=== PATIENT | female | born 1930 | race Caucasian/White ===

== ENCOUNTER 2016-12-08 11:17 | Emergency (ER) | payer MEDICARE, BC ==
[2016-12-08 11:44] LABS: Hematocrit 27.5 % (37.0-47.0); Hemoglobin 9.5 gm/dL (12.5-16.0); Mean Cell Volume 92.3 fl (78-100); Mean Corpuscular Hemoglobin 31.9 pg (27-31); Mean Corpuscular Hgb Conc 34.5 g/dl (32-36); Mean Platelet Volume 11.1 fl (6.0-9.5); Neutrophil # 6.4 K/mm3 (1.3-6.0); Platelet Count 242 K/mm3 (150-450); Red Blood Count 2.98 M/mm3 (4.2-5.4); Red Cell Distribution Width 13.1 % (11.5-14.0); White Blood Count 7.8 K/mm3 (4.0-10.5)
[2016-12-08 11:55] LABS: Prothrombin Time (Patient) 11.3 Seconds (9.4-11.4)
[2016-12-08 11:58] LABS: INR 1.09 INR (0.90-1.10); Partial Thrombolplastin Time 24.2 Seconds (24-32)
--- NOTE | 2016-12-08 12:00 | ERNOTE ---
Chest Pain/Cardiac HPI Chief Complaint: Chest Pain Source: patient Exam Limitations: no limitations Immunizations: IMMUNIZATION HX Immunizations Up to Date Yes History of Influenza Vaccine Yes Hx Pneumococcal Vaccination Yes Allergies/Adverse Reactions: Allergies clarithromycin [From Biaxin] Allergy (Mild, Verified 06/11/12 18:20) diclofenac [Diclofenac] Allergy (Mild, Verified 06/11/12 18:20) diclofenac sodium [From Voltaren] Allergy (Mild, Verified 06/11/12 18:21) penicillin G Allergy (Mild, Verified 06/11/12 18:21) rabeprazole sodium [From Aciphex] Allergy (Mild, Verified 06/11/12 18:20) Hives Sulfa (Sulfonamide Antibiotics) [Sulfa(Sulfonamide Antibiotics)] Allergy (Mild, Verified 06/11/12 18:21) rash Home Medications: HOME MEDICATIONS Aspirin [Aspirin EC] 81 mg PO DAILY 06/11/12 [Last Taken 06/11/12 09:00] Atorvastatin Calcium [Lipitor] 40 mg PO DAILY 06/11/12 [Last Taken 06/11/12 09: 00] Hum Insulin NPH/Reg Insulin Hm [Humulin 70-30 Vial] 30 unit SQ BID 06/11/12 [ Last Taken 06/11/12 09:00] Levothyroxine Sodium 50 mcg PO DAILY 06/11/12 [Last Taken 06/11/12 09:00] Metoprolol Tartrate [Lopressor] 25 mg PO DAILY 06/11/12 [Last Taken 06/11/12 09: 00] Omeprazole [Prilosec] 40 mg PO DAILY #30 capsule. 06/14/12 [Last Taken Unknown ] Acetaminophen [Tylenol] 650 mg PO Q4H PRN 12/08/16 [Last Taken Unknown] Insul NPH Hu Rec/Ins Rg Hu Rec [Novolin 70/30] 30 units SC BID 12/08/16 [Last Taken Unknown] Losartan Potassium [Cozaar] 100 mg PO DAILY 12/08/16 [Last Taken Unknown] Triamterene/Hydrochlorothiazid [Dyazide 37.5/25] 2 cap PO DAILY 12/08/16 [Last Taken Unknown] Narrative: Patient woke up this morning feeling weak and light headed, intermittent chest pressure, resolved at this point. She is coming by ambulance Date (Duration): 12/08/16 Time (Timing): 07:30 Timing: intermittent Severity/Quality: pressure Location: central Chest Pain Radiation: no radiation Nitro Today/Relief: no nitro taken today Aspirin Treatment Today: 81 mg x 1 Associated Symptoms: Present: dizziness Review of Systems - Review of Systems Constitutional: Present: weakness. Absent: recent illness, fever EYE: Absent: vision changes ENT: Absent: nose congestion Respiratory: Absent: shortness of breath Cardiology: Present: See HPI Gastrointestinal/Abdominal: Absent: nausea, vomiting, abdominal pain Genitourinary: Present: no symptoms reported Musculoskeletal: Absent: back pain Neurological: Present: weakness. Absent: headache, numbness - Patient's Past Medical History Patient History - Medical: Diabetes Type 2, GERD Patient History - Cardiac/Respiratory: Coronary Heart Disease, Hypertension, Hyperlipidemia Patient History - Surgical Procedures: Other Patient History - Other: None LMP (females 10-50): post menopausal - Social History Living Situations: home Abuse History: No History of abuse Psych History: No pertinent hx Smoking Status: Never smoker Alcohol Use: none Drug Use: none - Immunizations Immunizations Up to Date: Yes Hx Pneumococcal Vaccination: Yes History of Influenza Vaccine: Yes Physical Exam - Physical Exam General Appearance: Present: wd/wn, alert, no apparent distress Head Exam: Present: normal inspection Eye Exam: Normal inspection: bilateral, PERRL: bilateral Respiratory: Present: no respiratory distress, no accessory muscle use, lungs clear, decreased breath sounds Cardiovascular/Chest: Present: regular rate, rhythm, no murmur Gastrointestinal/Abdominal: Present: normal bowel sounds, nontender, nondistended, soft Neurological Exam: Present: alert, oriented, normal mood/affect Skin Exam: Present: warm/dry, pallor ED Progress - Results and Orders Patient's Lab Results:: I have reviewed the patient's lab results. - Vital Signs Patient's Vital Signs:: I have reviewed the patient's vital signs. Vital Signs: Vital Signs 12/08/16 11:20 Temperature 36.0 C L Pulse Rate 39 L Respiratory 17 Rate Blood Pressure 186/47 O2 Sat by Pulse 95 Oximetry - EKG EKG: other - 3rd degree heart block, rate 37bpm EKG read: Interp. by me - X-Ray X-Ray #1 X-Ray: chest - cardiomegalie, no acute changes Interpretation: Reviewed by me - Progress/Reassessment Chief Complaint: Chest Pain Progress Note-Subjective: 12/08/16 11:25 discussed diagnosis with patient and family, need for transfer and options. Patient sees Dr Reyes at the [facility], discussed being transferred there for continuity of care vs to [facility] which is closer. Patient might be liable for part of the ambulance bill if she chooses the more distant facility. Patient and daughters voices understanding and still would like transfer to [facility] 12/08/16 11:44 called to [facility], discussed with transfer center 12/08/16 12:[address] Og from the [facility], accepted patient for transfer labs returned K 5.7, will give calcium gluconate, D50 and insulin 12/08/16 12:40 patient comfortable, discussed plan Departure - Departure Clinical Impression: Third degree atrioventricular block, Hyperkalemia Disposition: [facility] Condition: Fair
[2016-12-08 12:01] LABS: Albumin * 3.6 gm/dl (3.4-5.0); Anion Gap 15.8 mmol/L (6.8-13.8); BUN/Creatinine Ratio 24.9 (9.0-21.6); Bilirubin, Total 0.6 mg/dL (0.0-1.1); Ca. Corrected For Albumin 9.1 mg/dL (8.4-10.2); Calcium * 9.1 mg/dL (7.9-10.9); Carbon Dioxide 22.9 mmol/L (24-32.6); Potassium 5.7 mmol/L (3.4-4.6); Total Protein 6.6 gm/dL (6.2-8.2); Troponin I 0.067 ng/ml (0.00-0.10)
[2016-12-08] MEDS ORDERED: CALCIUM GLUCONATE 4.65 MEQ/10 ML VIAL IV ONE ×2 (12:19→12:26)
[2016-12-08] MEDS ORDERED: INSULIN REGULAR, HUMAN 100 UNITS/ML VIAL IV ONE (12:21)
[2016-12-08] MEDS ORDERED: DEXTROSE 50%-WATER 50 ML SYRG IV ONE (12:22)
[2016-12-08] MEDS ORDERED: DEXTROSE 50%-WATER 50 ML SYRG ONE (12:26)
[2016-12-08] MEDS ORDERED: INSULIN REGULAR, HUMAN 100 UNITS/ML VIAL ONE (12:26)
[2016-12-08] MEDS ORDERED: NORMAL SALINE 1,000 ML IV ONE (12:35)
[2016-12-08 12:43] VITALS: BP 169/48
== END 2016-12-08 12:49 | disposition short-term general hospital (02) ==
LOC: ER 11:17
DX: I44.2 Atrioventricular block, complete (principal); E87.5 Hyperkalemia; I25.10 Atherosclerotic heart disease of native coronary artery without angina pectoris

== ENCOUNTER 2016-12-19 20:25 | Emergency (ER) | payer MEDICARE, BC ==
--- NOTE | 2016-12-19 20:46 | ERNOTE ---
Medical Problem HPI - Narrative Date of Service: 12/19/16 - General Chief Complaint: General Assessment Time Seen by Provider: 12/19/16 20:41 Source: patient Exam Limitations: no limitations - Immun/Allergies/Home Medications Immunizations: IMMUNIZATION HX Immunizations Up to Date Yes History of Influenza Vaccine No Hx Pneumococcal Vaccination Yes Allergies/Adverse Reactions: Allergies clarithromycin [From Biaxin] Allergy (Mild, Verified 06/11/12 18:20) diclofenac [Diclofenac] Allergy (Mild, Verified 06/11/12 18:20) diclofenac sodium [From Voltaren] Allergy (Mild, Verified 06/11/12 18:21) penicillin G Allergy (Mild, Verified 06/11/12 18:21) rabeprazole sodium [From Aciphex] Allergy (Mild, Verified 06/11/12 18:20) Hives Sulfa (Sulfonamide Antibiotics) [Sulfa(Sulfonamide Antibiotics)] Allergy (Mild, Verified 06/11/12 18:21) rash Home Medications: HOME MEDICATIONS Aspirin [Aspirin EC] 81 mg PO DAILY 06/11/12 [Last Taken 06/11/12 09:00] Atorvastatin Calcium [Lipitor] 40 mg PO DAILY 06/11/12 [Last Taken 06/11/12 09: 00] Hum Insulin NPH/Reg Insulin Hm [Humulin 70-30 Vial] 30 unit SQ BID 06/11/12 [ Last Taken 06/11/12 09:00] Levothyroxine Sodium 50 mcg PO DAILY 06/11/12 [Last Taken 06/11/12 09:00] Metoprolol Tartrate [Lopressor] 25 mg PO DAILY 06/11/12 [Last Taken 06/11/12 09: 00] Omeprazole [Prilosec] 40 mg PO DAILY #30 capsule. 06/14/12 [Last Taken Unknown ] Acetaminophen [Tylenol] 650 mg PO Q4H PRN 12/08/16 [Last Taken Unknown] Insul NPH Hu Rec/Ins Rg Hu Rec [Novolin 70/30] 30 units SC BID 12/08/16 [Last Taken Unknown] Losartan Potassium [Cozaar] 100 mg PO DAILY 12/08/16 [Last Taken Unknown] Triamterene/Hydrochlorothiazid [Dyazide 37.5/25] 2 cap PO DAILY 12/08/16 [Last Taken Unknown] Ferrous Gluconate 325 mg PO DAILY #21 tablet 12/19/16 [Last Taken Unknown] - Patient's Past Medical History Patient History - Medical: Diabetes Type 2, GERD, Glaucoma, Other Patient History - Cardiac/Respiratory: Coronary Heart Disease, Hypertension, Hyperlipidemia Patient History - Cancer: No Hx of Cancer Patient History - Surgical Procedures: Hysterectomy, Pacemaker, Total Hip Replacement, Other Patient History - Other: None LMP (females 10-50): Menopausal - Social History Living Situations: residential Abuse History: No History of abuse Psych History: No pertinent hx Have you smoked in the past 12 months: No Do you dip or chew tobacco: No Alcohol Use: none Drug Use: none - Immunizations Immunizations Up to Date: Yes Hx Pneumococcal Vaccination: Yes History of Influenza Vaccine: No Physical Exam - Physical Exam Narrative: Very pleasant and responsive. General Appearance: Present: no apparent distress Head Exam: Present: normal inspection Eye Exam: Normal inspection: bilateral Ears, Nose, Throat: Present: normal ENT inspection Neck: Present: normal inspection Respiratory: Present: no respiratory distress Cardiovascular/Chest: Present: tachycardia Gastrointestinal/Abdominal: Present: nontender, nondistended Back Exam: Present: normal inspection Extremity Exam: Present: normal inspection Neurological Exam: Present: alert, oriented, water conservationist II-XII nml as tested Skin Exam: Present: pallor - mild ED Progress - Results and Orders Patient's Lab Results:: I have reviewed the patient's lab results. - Vital Signs Patient's Vital Signs:: I have reviewed the patient's vital signs. Vital Signs: Vital Signs 12/19/16 20:29 Temperature 36.6 C Pulse Rate 90 Respiratory 18 Rate Blood Pressure 141/52 O2 Sat by Pulse 98 Oximetry - Progress/Reassessment Chief Complaint: General Assessment Progress:: Unchanged Progress Note-Subjective: 12/19/16 21:59 Hemodynamic was stable in the emergency department Departure - Departure Clinical Impression: Anemia Disposition: [facility] Condition: Fair Instructions: Iron Deficiency Anemia, Adult, Iron-Rich Diet Print Language: Libyan Additional Instructions: H and H should be repeated in two days. If the patient becomes symptomatic then transfusion will be needed. Referrals: Dot Salcido MD [Primary Care Provider] - Prescriptions: Ferrous Gluconate 325 mg PO DAILY #21 tablet
[2016-12-19 22:21] VITALS: BP 126/45
== END 2016-12-19 22:14 ==
LOC: ER 20:25
DX: D64.9 Anemia, unspecified (principal)

== ENCOUNTER 2016-12-22 16:42 | Inpatient (IN) | payer MEDICARE, BC ==
--- NOTE | 2016-12-22 17:17 | ERNOTE ---
Medical Problem HPI - General Chief Complaint: General Assessment Time Seen by Provider: 12/22/16 17:06 Source: patient Exam Limitations: no limitations - Immun/Allergies/Home Medications Immunizations: IMMUNIZATION HX Immunizations Up to Date No History of Influenza Vaccine No Hx Pneumococcal Vaccination No Allergies/Adverse Reactions: Allergies clarithromycin [From Biaxin] Allergy (Mild, Verified 06/11/12 18:20) diclofenac [Diclofenac] Allergy (Mild, Verified 06/11/12 18:20) diclofenac sodium [From Voltaren] Allergy (Mild, Verified 06/11/12 18:21) penicillin G Allergy (Mild, Verified 06/11/12 18:21) rabeprazole sodium [From Aciphex] Allergy (Mild, Verified 06/11/12 18:20) Hives Sulfa (Sulfonamide Antibiotics) [Sulfa(Sulfonamide Antibiotics)] Allergy (Mild, Verified 06/11/12 18:21) rash Home Medications: HOME MEDICATIONS Aspirin [Aspirin EC] 81 mg PO DAILY 06/11/12 [Last Taken 06/11/12 09:00] Atorvastatin Calcium [Lipitor] 40 mg PO DAILY 06/11/12 [Last Taken 06/11/12 09: 00] Hum Insulin NPH/Reg Insulin Hm [Humulin 70-30 Vial] 30 unit SQ BID 06/11/12 [ Last Taken 06/11/12 09:00] Levothyroxine Sodium 50 mcg PO DAILY 06/11/12 [Last Taken 06/11/12 09:00] Acetaminophen [Tylenol] 650 mg PO Q4H PRN 12/08/16 [Last Taken Unknown] Insul NPH Hu Rec/Ins Rg Hu Rec [Novolin 70/30] 30 units SC BID 12/08/16 [Last Taken Unknown] Ferrous Gluconate 325 mg PO DAILY #21 tablet 12/19/16 [Last Taken Unknown] Amlodipine Besylate [Norvasc] 2.5 mg PO BID 12/22/16 [Last Taken Unknown] B2/Vits A,C,E/Lut/Zeaxanth/Min [Icaps Tablet] 1 each PO DAILY 12/22/16 [Last Taken Unknown] Carvedilol [Coreg] 25 mg PO BID 12/22/16 [Last Taken Unknown] Clopidogrel Bisulfate [Plavix] 75 mg PO DAILY 12/22/16 [Last Taken Unknown] Nitroglycerin [Nitro-Dur] 0.4 mg TD PRN 12/22/16 [Last Taken Unknown] - History of Present History Narrative: Here for progressive shortness of breath which became worse today. Patient denies any chest pains. Patient gets short of breath with minimal exertion. She has a significant history of coronary artery disease with stents placed last week with permanent pacemaker placed last week at the [facility]. Review of Systems - Review of Systems Constitutional: Present: fatigue EYE: Present: no symptoms reported ENT: Present: no symptoms reported Respiratory: Present: shortness of breath Cardiology: Present: edema Gastrointestinal/Abdominal: Present: no symptoms reported - Patient's Past Medical History Patient History - Medical: Diabetes Type 2, GERD, Glaucoma, Renal Disease, Other Patient History - Cardiac/Respiratory: Coronary Heart Disease, Hypertension, Hyperlipidemia Patient History - Cancer: No Hx of Cancer Patient History - Surgical Procedures: Hysterectomy, Pacemaker, Total Hip Replacement, Other Patient History - Other: None - Social History Living Situations: half-way Abuse History: No History of abuse Psych History: No pertinent hx Smoking Status: Never smoker Alcohol Use: none Drug Use: none - Immunizations Immunizations Up to Date: No Hx Pneumococcal Vaccination: No History of Influenza Vaccine: No Physical Exam - Physical Exam General Appearance: Present: wd/wn, alert, other - patient appears very pale and short of breath but not in any distress Head Exam: Present: normal inspection, no evidence of injury Ears, Nose, Throat: Present: normal ENT inspection, normal pharynx Neck: Present: normal inspection, nontender, other - no JVD noted Respiratory: Present: no respiratory distress, other - patient is breathing rapidly she does have some bibasal crackles no definitive rales or rhonchi noted she is not wheezing at this time Cardiovascular/Chest: Present: regular rate, rhythm - patient has a pacemaker and she is pacemaker dependent. Gastrointestinal/Abdominal: Present: normal bowel sounds, nontender Extremity Exam: Present: other - patient has 2+ pitting edema in both ankles Neurological Exam: Present: alert, oriented, normal mood/affect, no motor/ sensory deficits ED Progress - Results and Orders Patient's Lab Results:: I have reviewed the patient's lab results. - Vital Signs Patient's Vital Signs:: I have reviewed the patient's vital signs. Vital Signs: Vital Signs 12/22/16 16:54 Temperature 36.4 C L Pulse Rate 64 Respiratory 20 Rate Blood Pressure 139/63 O2 Sat by Pulse 98 Oximetry - EKG EKG: other - patient is pacemaker dependent her rate is regular rate and rhythm - X-Ray X-Ray #1 X-Ray: chest - some blunting of the left costovertebral angle is noted this patient appears to be in congestive heart failure pacemaker visible in addition to sternotomy scar and sutures - Progress/Reassessment Chief Complaint: General Assessment Plan - Plan Plan: This patient's BNP is in excess of 3000 she is clinically and by BNP criteria in congestive heart failure. At this time this examiner will give the patient [address] Koenig was counseled in regards to this patient patient will be admitted to the medical floor and telemetry floor Departure - Departure Clinical Impression: Congestive heart failure Qualifiers: Congestive heart failure type: unspecified congestive heart failure type Congestive heart failure chronicity: acute Qualified Code(s): I50.9 - Heart failure, unspecified Disposition: [facility] Condition: Fair
[2016-12-22 17:31] LABS: Mean Cell Volume 96.3 fl (78-100); Mean Corpuscular Hemoglobin 32.8 pg (27-31); Mean Corpuscular Hgb Conc 34.1 g/dl (32-36); Mean Platelet Volume 9.7 fl (6.0-9.5); Neutrophil # 6.6 K/mm3 (1.3-6.0); Neutrophil % 83.2 % (42-75.0); Platelet Count 278 K/mm3 (150-450); Red Blood Count 2.41 M/mm3 (4.2-5.4); Red Cell Distribution Width 14.9 % (11.5-14.0); White Blood Count 7.9 K/mm3 (4.0-10.5)
[2016-12-22 17:51] LABS: Albumin * 3.4 gm/dl (3.4-5.0); Anion Gap 14.8 mmol/L (6.8-13.8); BUN/Creatinine Ratio 16.2 (9.0-21.6); Bilirubin, Total 0.9 mg/dL (0.0-1.1); Calcium * 8.8 mg/dL (7.9-10.9); Carbon Dioxide 24.2 mmol/L (24-32.6); Total Protein 6.2 gm/dL (6.2-8.2)
[2016-12-22 17:59] LABS: Hemoglobin 7.9 gm/dL (12.5-16.0)
[2016-12-22 18:00] LABS: Hematocrit 23.2 % (37.0-47.0)
[2016-12-22] MEDS ORDERED: FUROSEMIDE 10 MG/ML VIAL IV ONE ×2 (18:08→20:42)
[2016-12-22] MEDS ORDERED: FUROSEMIDE 10 MG/ML VIAL ONE (18:12)
--- NOTE | 2016-12-22 20:51 | HP ---
Chief Complaint - Chief Complaint Date of Service: 12/22/16 Time of Service: 20:51 Chief Complaint: shortness of breath History of Present Illness: Sulema is an 86 year old female patient of Dr Salcido with a PMH of CAD, 3rd degree heart block s/p pacemaker, HTN, HLD, and DM T2 who presents to the ER today with c/o dyspnea, fatigue and edema. 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 Patient and family indicate that post heart cath, patient's groin site bled extensively post op and the patient is still significantly bruised. ER eval shows hgb/hct 7.9/23.2. BNP 3104. UA negative. K+ 5.0, creatinine 1.05. chest xray shows small bilat basal effusions. patient was given 20 mg iv lasix in the ER and states she has had improvement in her dyspnea. Patient to be admitted to CHF exac. - Patient's Past Medical History Patient History - Medical: Diabetes Type 2, GERD, Glaucoma, Renal Disease, Other Patient History - Cardiac/Respiratory: Coronary Heart Disease, Hypertension, Hyperlipidemia Patient History - Cancer: No Hx of Cancer Patient History - Surgical Procedures: Hysterectomy, Pacemaker, Total Hip Replacement, Other Patient History - Other: None LMP (females 10-50): Menopausal - Family History Father Family History - Medical: Family History - Cardiac/Respiratory: No pertinent hx Family History - Cancer: Other - Social History Living Situations: long term Abuse History: No History of abuse Psych History: No pertinent hx Smoking Status: Never smoker Have you smoked in the past 12 months: No Do you dip or chew tobacco: No Alcohol Use: none Drug Use: none - Immunizations Immunizations Up to Date: No Hx Pneumococcal Vaccination: No History of Influenza Vaccine: No Review Of Systems (GEN) - Review of Systems Generalized/Overall Review: Present: Fatigue. Absent: Fever EENTM: Present: No Symptoms Reported Respiratory: Present: Shortness of Breath. Absent: Cough, Wheezing Cardiac: Present: Edema. Absent: Chest Pain Abdominal: Present: Nausea. Absent: Vomiting, Hematemesis Genitourinary: Present: No Symptoms Reported Musculoskeletal: Present: No Symptoms Reported Neurological: Present: No Symptoms Reported Skin: Present: No Symptoms Reported Endocrine: Present: No Symptoms Reported Misc: All systems neg except as marked Immunizations: IMMUNIZATION HX Immunizations Up to Date No History of Influenza Vaccine No Hx Pneumococcal Vaccination No Allergies/Adverse Reactions: Allergies Allergy/AdvReac Type Severity Reaction Status Date / Time clarithromycin [From Biaxin] Allergy Mild Verified 06/11/12 18:20 diclofenac [Diclofenac] Allergy Mild Verified 06/11/12 18:20 diclofenac sodium Allergy Mild Verified 06/11/12 18:21 [From Voltaren] penicillin G Allergy Mild Verified 06/11/12 18:21 rabeprazole sodium Allergy Mild Hives Verified 06/11/12 18:20 [From Aciphex] Sulfa (Sulfonamide Allergy Mild rash Verified 06/11/12 18:21 Antibiotics) [Sulfa(Sulfonamide Antibiotics)] Home Medications: HOME MEDICATIONS Aspirin [Aspirin EC] 81 mg PO DAILY 06/11/12 [Last Taken 06/11/12 09:00] Atorvastatin Calcium [Lipitor] 40 mg PO DAILY 06/11/12 [Last Taken 06/11/12 09: 00] Levothyroxine Sodium 50 mcg PO DAILY 06/11/12 [Last Taken 06/11/12 09:00] Acetaminophen [Tylenol] 325 mg PO Q4H PRN 12/08/16 [Last Taken Unknown] Ferrous Gluconate 325 mg PO DAILY #21 tablet 12/19/16 [Last Taken Unknown] Amlodipine Besylate [Norvasc] 2.5 mg PO BID 12/22/16 [Last Taken Unknown] B2/Vits A,C,E/Lut/Zeaxanth/Min [Icaps Tablet] 1 each PO DAILY 12/22/16 [Last Taken Unknown] Brimonidine Tartrate [Brimonidine 0.2% Ophthalmic Solution] 1 drop OP BID [Last Taken Unknown] Calcium Carbonate [Calcium Antacid] 1 tab PO TID PRN 12/22/16 [Last Taken Unknown] Carvedilol [Coreg] 25 mg PO BID 12/22/16 [Last Taken Unknown] Clopidogrel Bisulfate [Plavix] 75 mg PO DAILY 12/22/16 [Last Taken Unknown] Diphenhydramine HCl 25 mg PO Q4H PRN 12/22/16 [Last Taken Unknown] Insulin Aspart Prot/Insuln Asp [Novolog Mix 70/30] 28 units SQ BID 12/22/16 [ Last Taken Unknown] Latanoprost [Xalatan] 1 drop OP HS 12/22/16 [Last Taken Unknown] Nitroglycerin [Nitro-Dur] 0.4 mg TD PRN 12/22/16 [Last Taken Unknown] Pantoprazole Sodium [Protonix] 40 mg PO DAILY 12/22/16 [Last Taken Unknown] Pediatric Multivitamin No.49 [Flintstones Gummies] 2 each PO DAILY 12/22/16 [ Last Taken Unknown] Polyethylene Glycol 3350 [Miralax] 17 gm PO DAILY PRN 12/22/16 [Last Taken Unknown] Wheat Dextrin [Benefiber] 2 tbs PO DAILY 12/22/16 [Last Taken Unknown] Exam - Exam Vital Signs: Vital Signs - Last Taken Temp 36.5 C 12/22/16 18:48 Pulse 62 12/22/16 18:48 Resp 26 H 12/22/16 18:48 BP 153/67 12/22/16 18:48 Pulse Ox 100 12/22/16 18:48 Constitutional: Present: Alert, Cooperative, No distress ENT Exam: Present: hearing grossly normal Eye Exam: bilateral eye: normal inspection Neck: Present: supple Breasts: Present: Exam deferred Respiratory: Present: chest non-tender, normal breath sounds, rhonchi - bases, bilat Cardiovascular/Chest: Present: normal peripheral pulses, regular rate, rhythm Peripheral Pulses: carotid (R): 2+, carotid (L): 2+, dorsalis-pedis (R): 2+, dorsalis-pedis (L): 2+ Abdomen: Present: soft, nondistended, tender - mild, diffuse tenderness to palpation /Rectal: Present: Exam deferred Extremity: Present: non-tender, lower extremity edema - 2+ lpwer extremity edema bilat Skin Exam: Present: warm/dry, no cyanosis, pallor Diagnostic Studies: Laboratory Results WBC 7.9 K/mm3 (4.0-10.5) 12/22/16 17:25 RBC 2.41 M/mm3 (4.2-5.4) L 12/22/16 17:25 Hgb 7.9 gm/dL (12.5-16.0) L* 12/22/16 17:25 Hct 23.2 % (37.0-47.0) L* 12/22/16 17:25 MCV 96.3 fl (78-100) 12/22/16 17:25 MCH 32.8 pg (27-31) H 12/22/16 17:25 MCHC 34.1 g/dl (32-36) 12/22/16 17:25 RDW 14.9 % (11.5-14.0) H 12/22/16 17:25 Plt Count 278 K/mm3 (150-450) 12/22/16 17:25 MPV 9.7 fl (6.0-9.5) H 12/22/16 17:25 Immature Gran % (Auto) 0.80 % (0.001-0.429) H 12/22/16 17: Immature Gran # (Auto) 0.06 K/mm3 (0.000-0.0310) H 12/22/16 17: Neutrophils % 83.2 % (42-75.0) H 12/22/16 17:25 Lymphocytes % 5.8 % (20-51) L 12/22/16 17: Monocytes % 7.6 % (0.0-9) 12/22/16 17: Eosinophils % 2.3 % (0.0-3.0) 12/22/16 17: Basophils % 0.3 % (0.0-1.0) 12/22/16 17: Nucleated RBC % 0.0 k/mm3 (0-1) 12/22/16 17: Neutrophils # 6.6 K/mm3 (1.3-6.0) H 12/22/16 17:25 Lymphocytes # 0.5 k/mm3 (1.5-3.5) L 12/22/16 17:25 Monocytes # 0.6 k/mm3 (0.0-1.0) 12/22/16 17: Eosinophils # 0.2 k/mm3 (0.0-0.7) 12/22/16 17: Absolute Basophils 0.0 k/mm3 (0.0-0.1) 12/22/16 17:25 Sodium 126 mmol/L (132-142) L 12/22/16 17:25 Plasma Sodium 126 mmol/L (130-142) L 12/22/16 17:25 Potassium 5.0 mmol/L (3.4-4.6) H 12/22/16 17:25 Chloride 92 mmol/L (97-106) L 12/22/16 17:25 Carbon Dioxide 24.2 mmol/L (24-32.6) 12/22/16 17:25 Anion Gap 14.8 mmol/L (6.8-13.8) H 12/22/16 17:25 BUN 17 mg/dL (3-23) 12/22/16 17:25 Creatinine 1.05 mg/dL (0.4-1.4) 12/22/16 17:25 Est GFR (Non-Af Amer) 53 mL/min (60-130) L 12/22/16 17:25 BUN/Creatinine Ratio 16.2 (9.0-21.6) 12/22/16 17:25 Random Glucose 112 mg/dL (70-110) H 12/22/16 17:25 Calcium 8.8 mg/dL (7.9-10.9) 12/22/16 17:25 Calcium Adj for Albumin 9.0 mg/dL (8.4-10.2) 12/22/16 17:25 Total Bilirubin 0.9 mg/dL (0.0-1.1) 12/22/16 17:25 AST 28 U/L (0-48) 12/22/16 17:25 ALT 30 U/L (19-67) 12/22/16 17:25 Alkaline Phosphatase 65 U/L (50-170) 12/22/16 17:25 B-Natriuretic Peptide 3104 pg/mL (5-550) H 12/22/16 17:25 Total Protein 6.2 gm/dL (6.2-8.2) 12/22/16 17:25 Albumin 3.4 gm/dl (3.4-5.0) 12/22/16 17:25 Procalcitonin Less than 0.05 ng/mL (0.05-0.50) L 12/22/16 17:25 Assessment/Plan - Narrative Narrative: CHF - given lasix 20 mg iv in ER with good results - give an additional 20 mg iv x1 now. - strict I&Os - daily weights - CHF teaching - wean off O2 as able anemia - likely secondary to acute blood loss from bleed post cath - hgb stable for 10 days and actually has begun to climb. - not symptomatic at this time. hyponatremia - monitor labs - may be secondary to CHF l abdominal pain with nausea - also with increased "belching" - check ab xray - shows significant moderate constipation - give dulcolax 10 mg po x1, then fleets if dulcolax not effective. CAD - no chest pain - troponin negative - ekg not acute - monitor HTN - vital signs q 4 hours hyperkalemia - consider d/c [place]-inhibitor. Code status: full code VTE: early ambulation GI proph: protonix po. - Assessment/Plan (1) Abdominal pain Problem: Acute Qualifiers: Abdominal location: generalized Qualified Code(s): R10.84 - Generalized abdominal pain (2) HTN (hypertension) Problem: Chronic Qualifiers: Hypertension type: essential hypertension Qualified Code(s): I10 - Essential (primary) hypertension (3) HLD (hyperlipidemia) Problem: Chronic Qualifiers: Hyperlipidemia type: unspecified Qualified Code(s): E78.5 - Hyperlipidemia , unspecified (4) Diabetes Problem: Chronic Qualifiers: Diabetes mellitus type: type 2 Diabetes mellitus complication status: with unspecified complications Diabetes mellitus chcf insulin use: without chcf use Qualified Code(s): E11.8 - Type 2 diabetes mellitus with unspecified complications (5) Congestive heart failure Problem: Acute Qualifiers: Congestive heart failure type: unspecified congestive heart failure type Congestive heart failure chronicity: acute Qualified Code(s): I50.9 - Heart failure, unspecified (6) Anemia Problem: Acute Qualifiers: Anemia type: unspecified type Qualified Code(s): D64.9 - Anemia, unspecified (7) Hyponatremia Problem: Acute (8) Hyperkalemia Problem: Acute
[2016-12-22] MEDS ORDERED: POLYETHYLENE GLYCOL 3350 119 GM BTL PO PRN (20:54)
[2016-12-22] MEDS ORDERED: diphenhydrAMINE HCL 25 MG CAPSULE PO PRN (20:54)
[2016-12-22] MEDS ORDERED: ACETAMINOPHEN 325 MG TABLET PO PRN (20:54)
[2016-12-22 21:13] LABS: Amylase * 52 U/L (25-115); Lipase 75 U/L (73-393)
[2016-12-22 21:16] LABS: Iron 65 mcg/dL (35-120); Transferrin Sat. (% Sat.) 23 % (15-55)
[2016-12-22] MEDS: INSULIN LISPRO 100 UNITS/ML VIAL SC SCH (22:19)
[2016-12-22 22:20] LABS: Urine Bilirubin Negative (NEGATIVE); Urine Blood Negative /ul (NEGATIVE); Urine Ketone Negative (NEGATIVE); Urine Nitrite Negative (NEGATIVE); Urine Protein Negative (NEGATIVE); Urine Urobilinogen Normal (NORMAL)
[2016-12-22] MEDS: LATANOPROST 25 DROP BTL OP SCH (22:20)
[2016-12-22] MEDS: CARVEDILOL 25 MG TABLET PO SCH (22:20)
[2016-12-22] MEDS: BRIMONIDINE TARTRATE 50 DROP BTL OP SCH (22:20)
[2016-12-22] MEDS: amLODIPine BESYLATE 5 MG TABLET PO SCH (22:21)
[2016-12-22 22:32] LABS: Urine Appearance Clear; Urine Color Yellow
[2016-12-22 22:34] LABS: Urine Bacteria TRACE; Urine RBC None Seen /hpf (0-5); Urine WBC None Seen /hpf (0-5)
[2016-12-23] MEDS ORDERED: BISACODYL 5 MG TABLET.DR PO ONE (05:25)
[2016-12-23] MEDS ORDERED: BISACODYL 10 MG SUPP.RECT RC ONE (06:30)
[2016-12-23] MEDS ORDERED: MINERAL OIL 1 ENEMA BTL RC PRN (06:38)
[2016-12-23] MEDS ORDERED: AZITHROMYCIN 250 MG TABLET PO ONE (06:44)
--- NOTE | 2016-12-23 06:44 | PN ---
Progess Note - Interim Narrative: 12/23/16 06:40 pt. feeling better this am, but does have a dry throat and dry cough. not as SIFUENTES or SOB. Ankles feel less swollen. No CP/N/V. Exam shows significant EEW and E>>I tita. no rales. Trace LE edema. Pacemaker site healing well but ecchymotic right shouldner. 12/23/16 06:41 CHF: diastolic in nature at least given wheezing and LE edema, but also probably systolic too. Will continue lasix outpt. along with KCL and let PCP decide whether it needs to be continued or not. Hyponatremia: due to some lung disease. not a smoker so must be other exposures. Wheezing: acute bronchitis? or probable asthma exacerbation. Will do nebs today , consider steroid. Start zpak. Hopefully can send home later today.
[2016-12-23] MEDS: INSULIN LISPRO 100 UNITS/ML VIAL SC SCH ×4 (07:08→20:19)
[2016-12-23 07:22] LABS: Mean Cell Volume 94.4 fl (78-100); Mean Corpuscular Hemoglobin 32.9 pg (27-31); Mean Corpuscular Hgb Conc 34.9 g/dl (32-36); Mean Platelet Volume 9.4 fl (6.0-9.5); Neutrophil # 5.3 K/mm3 (1.3-6.0); Neutrophil % 77.4 % (42-75.0); Platelet Count 248 K/mm3 (150-450); Red Blood Count 2.31 M/mm3 (4.2-5.4); Red Cell Distribution Width 14.7 % (11.5-14.0); White Blood Count 6.9 K/mm3 (4.0-10.5)
[2016-12-23 07:26] LABS: Anion Gap 10.2 mmol/L (6.8-13.8); BUN/Creatinine Ratio 16.2 (9.0-21.6); Calcium * 8.6 mg/dL (7.9-10.9); Carbon Dioxide 29.8 mmol/L (24-32.6); Estimated Creat Clear 28.2
[2016-12-23] MEDS: ALBUTEROL SULFATE 2.5 MG/3 ML VIAL.NEB IH SCH ×5 (07:55→22:18)
[2016-12-23 07:58] LABS: Hematocrit 21.8 % (37.0-47.0); Hemoglobin 7.6 gm/dL (12.5-16.0)
[2016-12-23] MEDS: ASPIRIN 81 MG TABLET.DR PO SCH (08:37)
[2016-12-23] MEDS: BRIMONIDINE TARTRATE 50 DROP BTL OP SCH ×2 (08:37→20:18)
[2016-12-23] MEDS: FERROUS SULFATE 325 MG TABLET PO SCH (08:37)
[2016-12-23] MEDS: CARVEDILOL 25 MG TABLET PO SCH ×2 (08:37→20:18)
[2016-12-23] MEDS: CALCIUM POLYCARBOPHIL 625 MG TABLET PO SCH (08:38)
[2016-12-23] MEDS: MULTIVITAMINS 1 TAB TAB.CHEW PO SCH (08:38)
[2016-12-23] MEDS: PANTOPRAZOLE SODIUM 40 MG TABLET.EC PO SCH (08:39)
[2016-12-23] MEDS: CLOPIDOGREL BISULFATE 75 MG TABLET PO SCH (08:39)
[2016-12-23] MEDS: BETA-CAROTENE(A) W-C , E/MIN 1 TAB TABLET PO SCH (08:39)
[2016-12-23] MEDS: amLODIPine BESYLATE 5 MG TABLET PO SCH ×2 (08:39→20:19)
[2016-12-23] MEDS: LEVOTHYROXINE SODIUM 50 MCG TABLET PO SCH (08:39)
--- NOTE | 2016-12-23 08:44 | PN ---
Subjective - Date and Time Seen Date: 12/23/16 Time: 08:32 Subjective Narrative: Pt. without complaints except breathing issues and sore throat, feels better overall since yesterday, but is complaining of being very light headed when standing up. Objective - Review of Systems Generalized/Overall Review: Reports: Weakness EENTM: Reports: No Symptoms Reported Respiratory: Reports: Cough, Wheezing. Denies: Shortness of Breath, Orthopnea Cardiac: Reports: Other - light headed - orthostatic sx.. Denies: Chest Pain, Edema, Palpitations Abdominal: Denies: Nausea, Vomiting, Hematemesis Genitourinary Symptoms: Reports: No Symptoms Reported Musculoskeletal Complaints: Reports: No Symptoms Reported Neurological: Reports: No Symptoms Reported Skin: Reports: No Symptoms Reported Endocrine: Reports: No Symptoms Reported - Vitals Vitals: Last Vital Signs Temp 36.6 C 12/23/16 07:35 Pulse 60 12/23/16 08:05 Resp 16 12/23/16 08:05 BP 141/46 12/23/16 07:35 Pulse Ox 96 12/23/16 07:55 - Abnormal Lab Findings Abnormal Lab Findings: Abnormal Lab Results 12/23/16 12/23/16 Range/Units 07:10 07:10 RBC 2.31 L (4.2-5.4) M/mm3 Hgb 7.6 L* (12.5-16.0) gm/dL Hct 21.8 L* (37.0-47.0) % MCH 32.9 H (27-31) pg RDW 14.7 H (11.5-14.0) % Neutrophils % 77.4 H (42-75.0) % Lymphocytes % 9.7 L (20-51) % Monocytes % 9.2 H (0.0-9) % Lymphocytes # 0.7 L (1.5-3.5) k/mm3 Sodium 127 L (132-142) mmol/L Plasma Sodium 127 L (130-142) mmol/L Chloride 91 L (97-106) mmol/L Est GFR (Non-Af Amer) 49 L (60-130) mL/min - EKG/Xray Findings EKG: other - paced rhythm - Exam Constitutional: Present: Alert, Oriented x3, Cooperative, No distress ENT Exam: Present: hearing grossly normal Neck: Present: supple Respiratory: Present: no accessory muscle use, respiratory distress - mild, rhonchi, wheezing, expiration (prolonged) Cardiovascular/Chest: Present: regular rate, rhythm, systolic murmur, edema - 1+ LE Abdomen: Present: Normal bowel sounds, soft, nontender, nondistended, no rebound tenderness, no hepatospenomegaly /Rectal: Present: Exam deferred Extremity: Present: no calf tenderness, lower extremity edema Skin Exam: Present: pallor, other - incision over pacemaker placement right shoulder is healing well with some bruising, but no signs of infection. Neurologic: Present: normal mood/affect, oriented x 3 Appearance: Present: appropriate appearance, appropriate insight, neat Eye contact: Present: cooperative, good eye contact, normal speech Thoughts: Present: normal thought pattern, no apparent hallucination Assessment/Plan - Problems/Diagnosis (1) Pacemaker Problem: Acute Narrative: appears to be working well, but did just go through major procedures for this and heart stenting. (2) Bronchitis after surgery Problem: Acute Narrative: having lung issues right now, believe it is high risk to send her home at this time without being sure she will respond to neb tx and abx. (3) Congestive heart failure Problem: Acute Qualifiers: Congestive heart failure type: unspecified congestive heart failure type Congestive heart failure chronicity: acute Qualified Code(s): I50.9 - Heart failure, unspecified Narrative: appears to be improved but since it is mainly diastolic and she is having lung issues right now, believe it is high risk to send her home at this time without being sure she will respond to neb tx and abx. (4) Hyponatremia Problem: Acute (5) Diabetes Problem: Chronic Qualifiers: Diabetes mellitus type: type 2 Diabetes mellitus complication status: with unspecified complications Diabetes mellitus long term acute care registered nurse insulin use: without long term acute care registered nurse use Qualified Code(s): E11.8 - Type 2 diabetes mellitus with unspecified complications (6) HLD (hyperlipidemia) Problem: Chronic Qualifiers: Hyperlipidemia type: unspecified Qualified Code(s): E78.5 - Hyperlipidemia , unspecified (7) HTN (hypertension) Problem: Chronic Qualifiers: Hypertension type: essential hypertension Qualified Code(s): I10 - Essential (primary) hypertension Narrative: stable at the moment. BP's running high. follow for now. could be compensation from anemia. (8) Anemia Problem: Acute Qualifiers: Anemia type: unspecified type Qualified Code(s): D64.9 - Anemia, unspecified Narrative: most likely due to acute blood loss from recent procedures, which puts her at a very high risk for ACS/ so will make her inpatient to see how Hb does, to be sure remains stable and her orthostatic sx improve. (9) Hyperkalemia Problem: Resolved (10) Discharge planning issues Problem: Acute Narrative: Given her CAD, age, anemia, hyponatremia that did has not improved and with orthostatic sx and lung findings I feel it would be inappropriate to discharge at this time due to high risk of or adverse outcome should she be discharged at this time. I believe due to her multiple issues she meets inpatient criteria and needs to be in the hospital a minimum of 2 midnights to be sure her condition improves and not worsens. She may need transfusion if she continues with sx and her lung findings could be signs of developing pneumonia given her recent hospitalization.
[2016-12-23] MEDS ORDERED: CALCIUM CARBONATE 500 MG TAB.CHEW PO PRN (09:00)
[2016-12-23] MEDS ORDERED: ATORVASTATIN CALCIUM 40 MG TABLET PO SCH (09:00)
[2016-12-23] MEDS ORDERED: METHYLPREDNISOLONE SOD SUCC/PF 40 MG/ML VIAL IV ONE (09:41)
[2016-12-23] MEDS ORDERED: METHYLPREDNISOLONE SOD SUCC 80 MG in WATER FOR INJ.,BACTERIOSTATIC 0 ML IV ONE (10:00)
[2016-12-23] MEDS ORDERED: INSULIN REGULAR, HUMAN 100 UNITS/ML VIAL SC SCH (12:00)
[2016-12-23] MEDS: LATANOPROST 25 DROP BTL OP SCH (20:18)
[2016-12-23] MEDS: ROSUVASTATIN CALCIUM 20 MG TABLET PO SCH (20:18)
[2016-12-24] MEDS: ALBUTEROL SULFATE 2.5 MG/3 ML VIAL.NEB IH SCH ×6 (02:06→22:46)
[2016-12-24] MEDS: INSULIN LISPRO 100 UNITS/ML VIAL SC SCH ×4 (07:28→20:13)
[2016-12-24] MEDS: MULTIVITAMINS 1 TAB TAB.CHEW PO SCH (09:01)
[2016-12-24] MEDS: amLODIPine BESYLATE 5 MG TABLET PO SCH ×2 (09:01→20:13)
[2016-12-24] MEDS: CALCIUM POLYCARBOPHIL 625 MG TABLET PO SCH (09:01)
[2016-12-24] MEDS: ASPIRIN 81 MG TABLET.DR PO SCH (09:01)
[2016-12-24] MEDS: CLOPIDOGREL BISULFATE 75 MG TABLET PO SCH (09:01)
[2016-12-24] MEDS: BETA-CAROTENE(A) W-C , E/MIN 1 TAB TABLET PO SCH (09:01)
[2016-12-24] MEDS: PANTOPRAZOLE SODIUM 40 MG TABLET.EC PO SCH (09:02)
[2016-12-24] MEDS: LEVOTHYROXINE SODIUM 50 MCG TABLET PO SCH (09:02)
[2016-12-24] MEDS: CARVEDILOL 25 MG TABLET PO SCH ×2 (09:02→20:14)
[2016-12-24] MEDS: BRIMONIDINE TARTRATE 50 DROP BTL OP SCH ×2 (09:02→20:14)
[2016-12-24] MEDS: FERROUS SULFATE 325 MG TABLET PO SCH (09:02)
[2016-12-24 09:48] LABS: Mean Cell Volume 93.4 fl (78-100); Mean Corpuscular Hemoglobin 32.8 pg (27-31); Mean Platelet Volume 10.1 fl (6.0-9.5); Platelet Count 271 K/mm3 (150-450); Red Blood Count 2.29 M/mm3 (4.2-5.4); Red Cell Distribution Width 14.8 % (11.5-14.0); White Blood Count 12.1 K/mm3 (4.0-10.5)
[2016-12-24 09:51] LABS: Hematocrit 21.4 % (37.0-47.0); Hemoglobin 7.5 gm/dL (12.5-16.0)
[2016-12-24 10:06] LABS: Anion Gap 15.9 mmol/L (6.8-13.8); BUN/Creatinine Ratio 17.9 (9.0-21.6); Calcium * 8.5 mg/dL (7.9-10.9); Carbon Dioxide 24.6 mmol/L (24-32.6); Estimated Creat Clear 20.8; Potassium 4.5 mmol/L (3.4-4.6)
[2016-12-24 14:30] LABS: Urine Bilirubin Negative (NEGATIVE); Urine Blood Negative /ul (NEGATIVE); Urine Ketone Negative (NEGATIVE); Urine Nitrite Negative (NEGATIVE); Urine Protein Negative (NEGATIVE); Urine Urobilinogen Normal (NORMAL); Urine pH 5.5 pH (5.0-7.0)
[2016-12-24 14:40] LABS: Urine Appearance Clear; Urine Color Yellow
[2016-12-24 14:41] LABS: Urine RBC None Seen /hpf (0-5); Urine WBC 0-5 /hpf (0-5)
[2016-12-24 14:42] LABS: Urine Bacteria 1+
--- NOTE | 2016-12-24 16:27 | PN ---
Subjective - Date and Time Seen Date: 12/24/16 Time: 07:50 Subjective Narrative: Patient seen and examined at bedside. No acute issues overnight. Objective - Review of Systems Generalized/Overall Review: Reports: Weakness, Fatigue EENTM: Reports: No Symptoms Reported Respiratory: Reports: Shortness of Breath Cardiac: Reports: Edema Abdominal: Reports: No Symptoms Reported Genitourinary Symptoms: Reports: No Symptoms Reported Musculoskeletal Complaints: Reports: No Symptoms Reported Neurological: Reports: No Symptoms Reported Skin: Reports: No Symptoms Reported Endocrine: Reports: No Symptoms Reported Misc: All systems neg except as marked - Vitals Vitals: Last Vital Signs Temp 36.4 C L 12/24/16 14:16 Pulse 60 12/24/16 14:52 Resp 16 12/24/16 14:52 BP 156/57 12/24/16 14:16 Pulse Ox 97 12/24/16 14:42 - Abnormal Lab Findings Abnormal Lab Findings: Abnormal Lab Results 12/24/16 12/24/16 12/24/16 Range/Units 09:30 09:30 14:20 WBC 12.1 H D (4.0-10.5) K/mm3 RBC 2.29 L (4.2-5.4) M/mm3 Hgb 7.5 L* (12.5-16.0) gm/dL Hct 21.4 L* (37.0-47.0) % MCH 32.8 H (27-31) pg RDW 14.8 H (11.5-14.0) % MPV 10.1 H (6.0-9.5) fl Sodium 122 L (132-142) mmol/L Plasma Sodium 125 L (130-142) mmol/L Chloride 86 L (97-106) mmol/L Anion Gap 15.9 H (6.8-13.8) mmol/L BUN 27 H (3-23) mg/dL Creatinine 1.51 H D (0.4-1.4) mg/dL Est GFR (Non-Af Amer) 35 L D (60-130) mL/min Random Glucose 287 H D (70-110) mg/dL B-Natriuretic Peptide 4870 H (5-550) pg/mL Ur Leukocyte Esterase (NEGATIVE) /ul Urine Bacteria (NONE) Ur Random Sodium 4 L (40-220) mmol/L 12/24/16 Range/Units 14:20 WBC (4.0-10.5) K/mm3 RBC (4.2-5.4) M/mm3 Hgb (12.5-16.0) gm/dL Hct (37.0-47.0) % MCH (27-31) pg RDW (11.5-14.0) % MPV (6.0-9.5) fl Sodium (132-142) mmol/L Plasma Sodium (130-142) mmol/L Chloride (97-106) mmol/L Anion Gap (6.8-13.8) mmol/L BUN (3-23) mg/dL Creatinine (0.4-1.4) mg/dL Est GFR (Non-Af Amer) (60-130) mL/min Random Glucose (70-110) mg/dL B-Natriuretic Peptide (5-550) pg/mL Ur Leukocyte Esterase 25 H (NEGATIVE) /ul Urine Bacteria 1+ H (NONE) Ur Random Sodium (40-220) mmol/L - Exam Constitutional: Present: Alert, Oriented x3, Cooperative, Well developed, No distress, Elderly, Obese ENT Exam: Present: moist mucous membranes Respiratory: Present: lungs clear, normal breath sounds, no respiratory distress , no accessory muscle use Cardiovascular/Chest: Present: regular rate, rhythm, systolic murmur, edema - 2 + pitting edema in bilateral lower extremities Abdomen: Present: soft, nontender, nondistended Extremity: Present: non-tender, normal inspection, lower extremity edema - 2+ pitting edema in bilateral lower extremities Skin Exam: Present: warm/dry, pallor Neurologic: Present: alert, normal mood/affect, oriented x 3 Appearance: Present: appropriate appearance, appropriate insight, neat Eye contact: Present: cooperative, good eye contact, normal speech Thoughts: Present: normal thought pattern, no apparent hallucination Assessment/Plan Plan Narrative: Hyponatremia workup ordered. Start fluid restriction with a maximum of 2000cc per day. Continue to monitor hemoglobin and if it continues to decline, consider blood transfusion. Continue to monitor potassium with at least daily BMP and replace potassium as necessary. - Problems/Diagnosis (1) Congestive heart failure Problem: Acute Qualifiers: Congestive heart failure type: unspecified congestive heart failure type Congestive heart failure chronicity: acute Qualified Code(s): I50.9 - Heart failure, unspecified (2) Hypokalemia Problem: Acute (3) Hyponatremia Problem: Acute (4) Normocytic anemia Problem: Acute (5) Benign essential hypertension Problem: Chronic (6) CAD (coronary artery disease) Problem: Chronic (7) GERD (gastroesophageal reflux disease) Problem: Chronic (8) Glaucoma Problem: Chronic (9) HLD (hyperlipidemia) Problem: Chronic Qualifiers: Hyperlipidemia type: unspecified Qualified Code(s): E78.5 - Hyperlipidemia , unspecified (10) Hypothyroidism Problem: Chronic (11) Type 2 diabetes mellitus Problem: Chronic (12) Third degree atrioventricular block Problem: Resolved
[2016-12-24] MEDS: HEPARIN SODIUM,PORCINE 5,000 UNITS/ML VIAL SC SCH (17:12)
[2016-12-24 19:31] LABS: Anion Gap 12.1 mmol/L (6.8-13.8); BUN/Creatinine Ratio 22.6 (9.0-21.6); Calcium * 8.5 mg/dL (7.9-10.9); Carbon Dioxide 27.7 mmol/L (24-32.6); Estimated Creat Clear 22.9; Potassium 4.8 mmol/L (3.4-4.6)
[2016-12-24] MEDS: ROSUVASTATIN CALCIUM 20 MG TABLET PO SCH (20:14)
[2016-12-24] MEDS: LATANOPROST 25 DROP BTL OP SCH (20:14)
[2016-12-25] MEDS: ALBUTEROL SULFATE 2.5 MG/3 ML VIAL.NEB IH SCH ×6 (03:35→22:56)
[2016-12-25] MEDS: HEPARIN SODIUM,PORCINE 5,000 UNITS/ML VIAL SC SCH ×2 (03:37→17:25)
[2016-12-25 06:47] LABS: Mean Cell Volume 94.1 fl (78-100); Mean Corpuscular Hemoglobin 32.9 pg (27-31); Mean Corpuscular Hgb Conc 34.9 g/dl (32-36); Mean Platelet Volume 10.5 fl (6.0-9.5); Platelet Count 251 K/mm3 (150-450); Red Blood Count 2.22 M/mm3 (4.2-5.4); Red Cell Distribution Width 14.8 % (11.5-14.0); White Blood Count 9.7 K/mm3 (4.0-10.5)
[2016-12-25 07:00] LABS: Anion Gap 11.1 mmol/L (6.8-13.8); BUN/Creatinine Ratio 27.8 (9.0-21.6); Calcium * 8.8 mg/dL (7.9-10.9); Estimated Creat Clear 27.3; Potassium 4.1 mmol/L (3.4-4.6)
[2016-12-25 07:03] LABS: Hematocrit 20.9 % (37.0-47.0); Hemoglobin 7.3 gm/dL (12.5-16.0)
[2016-12-25] MEDS: INSULIN LISPRO 100 UNITS/ML VIAL SC SCH ×4 (07:46→20:41)
[2016-12-25] MEDS: CARVEDILOL 25 MG TABLET PO SCH ×2 (08:42→20:41)
[2016-12-25] MEDS: ASPIRIN 81 MG TABLET.DR PO SCH (08:42)
[2016-12-25] MEDS: CALCIUM POLYCARBOPHIL 625 MG TABLET PO SCH (08:43)
[2016-12-25] MEDS: FERROUS SULFATE 325 MG TABLET PO SCH (08:43)
[2016-12-25] MEDS: MULTIVITAMINS 1 TAB TAB.CHEW PO SCH (08:44)
[2016-12-25] MEDS: CLOPIDOGREL BISULFATE 75 MG TABLET PO SCH (08:45)
[2016-12-25] MEDS: BETA-CAROTENE(A) W-C , E/MIN 1 TAB TABLET PO SCH (08:45)
[2016-12-25] MEDS: PANTOPRAZOLE SODIUM 40 MG TABLET.EC PO SCH (08:46)
[2016-12-25] MEDS: amLODIPine BESYLATE 5 MG TABLET PO SCH ×2 (08:46→20:42)
[2016-12-25] MEDS: LEVOTHYROXINE SODIUM 50 MCG TABLET PO SCH (08:47)
[2016-12-25] MEDS: BRIMONIDINE TARTRATE 50 DROP BTL OP SCH ×2 (08:48→20:37)
[2016-12-25] MEDS ORDERED: FUROSEMIDE 10 MG/ML VIAL IV PRN ×2 (09:00→09:03)
--- NOTE | 2016-12-25 17:10 | PN ---
Subjective - Date and Time Seen Date: 12/25/16 Time: 07:50 Subjective Narrative: Patient seen and examined at bedside. No acute issues overnight. Objective - Review of Systems Generalized/Overall Review: Reports: Weakness, Fatigue EENTM: Reports: No Symptoms Reported Respiratory: Reports: Shortness of Breath Cardiac: Reports: Edema Abdominal: Reports: No Symptoms Reported Genitourinary Symptoms: Reports: No Symptoms Reported Musculoskeletal Complaints: Reports: No Symptoms Reported Neurological: Reports: No Symptoms Reported Skin: Reports: No Symptoms Reported Endocrine: Reports: No Symptoms Reported Misc: All systems neg except as marked - Vitals Vitals: Last Vital Signs Temp 36.5 C 12/25/16 14:41 Pulse 62 12/25/16 14:41 Resp 18 12/25/16 14:41 BP 126/78 12/25/16 14:41 Pulse Ox 100 12/25/16 14:41 - Abnormal Lab Findings Abnormal Lab Findings: Abnormal Lab Results 12/24/16 12/25/16 12/25/16 Range/Units 19:15 06:33 06:33 RBC 2.22 L (4.2-5.4) M/mm3 Hgb 7.3 L* (12.5-16.0) gm/dL Hct 20.9 L* (37.0-47.0) % MCH 32.9 H (27-31) pg RDW 14.8 H (11.5-14.0) % MPV 10.5 H (6.0-9.5) fl Sodium 122 L 124 L (132-142) mmol/L Plasma Sodium 124 L 125 L (130-142) mmol/L Potassium 4.8 H (3.4-4.6) mmol/L Chloride 87 L 89 L (97-106) mmol/L BUN 31 H 32 H (3-23) mg/dL Est GFR (Non-Af Amer) 39 L 47 L D (60-130) mL/min BUN/Creatinine Ratio 22.6 H 27.8 H (9.0-21.6) Random Glucose 217 H 159 H (70-110) mg/dL Crossmatch 12/25/16 Range/Units 09:15 RBC (4.2-5.4) M/mm3 Hgb (12.5-16.0) gm/dL Hct (37.0-47.0) % MCH (27-31) pg RDW (11.5-14.0) % MPV (6.0-9.5) fl Sodium (132-142) mmol/L Plasma Sodium (130-142) mmol/L Potassium (3.4-4.6) mmol/L Chloride (97-106) mmol/L BUN (3-23) mg/dL Est GFR (Non-Af Amer) (60-130) mL/min BUN/Creatinine Ratio (9.0-21.6) Random Glucose (70-110) mg/dL Crossmatch See Detail - Exam Constitutional: Present: Alert, Oriented x3, Cooperative, Well developed, No distress, Elderly, Morbidly obese ENT Exam: Present: moist mucous membranes Respiratory: Present: lungs clear, normal breath sounds, no respiratory distress , no accessory muscle use Cardiovascular/Chest: Present: regular rate, rhythm, systolic murmur, edema - 1- 2+ pitting edema in bilateral lower extremities Abdomen: Present: soft, nontender, nondistended Extremity: Present: non-tender, normal inspection, lower extremity edema - 1-2+ pitting edema in bilateral lower extremities Skin Exam: Present: warm/dry, pallor Neurologic: Present: alert, normal mood/affect, oriented x 3 Appearance: Present: appropriate appearance, appropriate insight, neat Eye contact: Present: cooperative, good eye contact, normal speech Thoughts: Present: normal thought pattern, no apparent hallucination Assessment/Plan Plan Narrative: Sodium level slowly improving. Continue fluid restriction. Transfuse 2 Units PRBC. Give 40mg of IV Lasix following each transfusion. Replace potassium. Recheck BMP and H&H approximately 30 minutes after 2nd unit of blood has been transfused. - Problems/Diagnosis (1) Congestive heart failure Problem: Acute Qualifiers: Congestive heart failure type: unspecified congestive heart failure type Congestive heart failure chronicity: acute Qualified Code(s): I50.9 - Heart failure, unspecified (2) Hyponatremia Problem: Acute (3) Normocytic anemia Problem: Acute (4) Benign essential hypertension Problem: Chronic (5) CAD (coronary artery disease) Problem: Chronic (6) GERD (gastroesophageal reflux disease) Problem: Chronic (7) Hypothyroidism Problem: Chronic (8) Type 2 diabetes mellitus Problem: Chronic (9) Third degree atrioventricular block Problem: Resolved
[2016-12-25 19:21] LABS: Hematocrit 31.5 % (37.0-47.0); Hemoglobin 11.1 gm/dL (12.5-16.0)
[2016-12-25 19:34] LABS: Anion Gap 10.7 mmol/L (6.8-13.8); BUN/Creatinine Ratio 25.6 (9.0-21.6); Calcium * 8.7 mg/dL (7.9-10.9); Carbon Dioxide 29.4 mmol/L (24-32.6); Estimated Creat Clear 24.3; Potassium 4.1 mmol/L (3.4-4.6)
[2016-12-25] MEDS: LATANOPROST 25 DROP BTL OP SCH (20:36)
[2016-12-25] MEDS: ROSUVASTATIN CALCIUM 20 MG TABLET PO SCH (20:41)
[2016-12-26] MEDS: ALBUTEROL SULFATE 2.5 MG/3 ML VIAL.NEB IH SCH ×3 (03:24→10:21)
[2016-12-26] MEDS: HEPARIN SODIUM,PORCINE 5,000 UNITS/ML VIAL SC SCH ×2 (04:43→17:18)
[2016-12-26 05:27] LABS: Hematocrit 28.1 % (37.0-47.0); Mean Cell Volume 88.6 fl (78-100); Mean Corpuscular Hemoglobin 31.5 pg (27-31); Mean Corpuscular Hgb Conc 35.6 g/dl (32-36); Platelet Count 221 K/mm3 (150-450); Red Blood Count 3.17 M/mm3 (4.2-5.4); Red Cell Distribution Width 15.8 % (11.5-14.0); White Blood Count 8.3 K/mm3 (4.0-10.5)
[2016-12-26 06:23] LABS: Anion Gap 8.2 mmol/L (6.8-13.8); BUN/Creatinine Ratio 25.9 (9.0-21.6); Calcium * 8.6 mg/dL (7.9-10.9); Carbon Dioxide 30.9 mmol/L (24-32.6); Potassium 3.1 mmol/L (3.4-4.6)
[2016-12-26] MEDS ORDERED: POTASSIUM CHLORIDE 20 MEQ TABLET.SA PO ONE (07:01)
[2016-12-26] MEDS: INSULIN LISPRO 100 UNITS/ML VIAL SC SCH ×4 (07:06→20:06)
[2016-12-26] MEDS: FUROSEMIDE 40 MG TABLET PO SCH ×3 (07:37→20:09)
[2016-12-26] MEDS: SPIRONOLACTONE 25 MG TABLET PO SCH (08:34)
[2016-12-26] MEDS: CLOPIDOGREL BISULFATE 75 MG TABLET PO SCH (08:34)
[2016-12-26] MEDS: MULTIVITAMINS 1 TAB TAB.CHEW PO SCH (08:34)
[2016-12-26] MEDS: ASPIRIN 81 MG TABLET.DR PO SCH (08:35)
[2016-12-26] MEDS: CARVEDILOL 25 MG TABLET PO SCH ×2 (08:35→20:04)
[2016-12-26] MEDS: CALCIUM POLYCARBOPHIL 625 MG TABLET PO SCH (08:35)
[2016-12-26] MEDS: FERROUS SULFATE 325 MG TABLET PO SCH (08:35)
[2016-12-26] MEDS: LEVOTHYROXINE SODIUM 50 MCG TABLET PO SCH (08:35)
[2016-12-26] MEDS: amLODIPine BESYLATE 5 MG TABLET PO SCH ×2 (08:36→20:02)
[2016-12-26] MEDS: BETA-CAROTENE(A) W-C , E/MIN 1 TAB TABLET PO SCH (08:36)
[2016-12-26] MEDS: PANTOPRAZOLE SODIUM 40 MG TABLET.EC PO SCH (08:36)
[2016-12-26] MEDS: BRIMONIDINE TARTRATE 50 DROP BTL OP SCH ×2 (08:38→20:02)
--- NOTE | 2016-12-26 09:16 | PN ---
Subjective - Date and Time Seen Date: 12/26/16 Time: 09:08 Subjective Narrative: Patient seen and examined at bedside. No acute issues overnight. Patient states she is feeling fairly well and denies any new issues or concerns. Objective - Review of Systems Generalized/Overall Review: Reports: Fatigue EENTM: Reports: No Symptoms Reported Respiratory: Reports: Shortness of Breath - SOB with activity (improving) Cardiac: Reports: Edema - improving Abdominal: Reports: No Symptoms Reported Genitourinary Symptoms: Reports: No Symptoms Reported Musculoskeletal Complaints: Reports: No Symptoms Reported Neurological: Reports: No Symptoms Reported Skin: Reports: No Symptoms Reported Endocrine: Reports: No Symptoms Reported Misc: All systems neg except as marked - Vitals Vitals: Last Vital Signs Temp 36.3 C L 12/26/16 06:35 Pulse 63 12/26/16 08:36 Resp 16 12/26/16 06:35 BP 162/68 12/26/16 08:36 Pulse Ox 96 12/26/16 06:35 - Abnormal Lab Findings Abnormal Lab Findings: Abnormal Lab Results 12/25/16 12/25/16 12/25/16 Range/Units 09:15 19:15 19:15 RBC (4.2-5.4) M/mm3 Hgb 11.1 L (12.5-16.0) gm/dL Hct 31.5 L (37.0-47.0) % MCH (27-31) pg RDW (11.5-14.0) % MPV (6.0-9.5) fl Sodium 125 L (132-142) mmol/L Plasma Sodium 127 L (130-142) mmol/L Potassium (3.4-4.6) mmol/L Chloride 89 L (97-106) mmol/L BUN 33 H (3-23) mg/dL Est GFR (Non-Af Amer) 42 L (60-130) mL/min BUN/Creatinine Ratio 25.6 H (9.0-21.6) Random Glucose 201 H (70-110) mg/dL Serum Osmolality mOsm/kg Crossmatch See Detail 12/25/16 12/26/16 12/26/16 Range/Units Unknown 05:15 05:15 RBC 3.17 L (4.2-5.4) M/mm3 Hgb 10.0 L (12.5-16.0) gm/dL Hct 28.1 L (37.0-47.0) % MCH 31.5 H (27-31) pg RDW 15.8 H (11.5-14.0) % MPV 10.0 H (6.0-9.5) fl Sodium 127 L (132-142) mmol/L Plasma Sodium 128 L (130-142) mmol/L Potassium 3.1 L D (3.4-4.6) mmol/L Chloride 91 L (97-106) mmol/L BUN 29 H (3-23) mg/dL Est GFR (Non-Af Amer) 49 L (60-130) mL/min BUN/Creatinine Ratio 25.9 H (9.0-21.6) Random Glucose 152 H (70-110) mg/dL Serum Osmolality 269 L mOsm/kg Crossmatch - Exam Constitutional: Present: Alert, Oriented x3, Cooperative, Well developed, Elderly, Obese ENT Exam: Present: moist mucous membranes Respiratory: Present: lungs clear, normal breath sounds, no respiratory distress , no accessory muscle use Cardiovascular/Chest: Present: regular rate, rhythm, edema - 1+ edema in bilateral lower extremities Abdomen: Present: soft, nontender, nondistended, obese Extremity: Present: non-tender, normal inspection, lower extremity edema - 1+ pitting edema in bilateral lower extremities Skin Exam: Present: warm/dry, no cyanosis Neurologic: Present: alert, normal mood/affect, oriented x 3 Appearance: Present: appropriate appearance, appropriate insight, neat Eye contact: Present: cooperative, good eye contact, normal speech Thoughts: Present: normal thought pattern, no apparent hallucination Assessment/Plan Plan Narrative: IMPRESSION & PLAN: Hypervolemic Hypotonic Hyponatremia -Serum osmolality low at 269 which is consistent with hypotonic hyponatremia (excess of free water relative to sodium). Urine sodium low. The patients clinical picture as well as her laboratory findings are consistent with hypervolemic hypotonic hyponatremia. -Continue fluid restriction of 2000cc per day -Sodium level slowly improving -Continue to monitor and recheck BMP in AM -Of note, the patient was discharged from the [facility] on 2016, her sodium level at that time was 128. Hypokalemia -Give KCl 40mEq PO X 1 this AM -Start daily by mouth potassium replacement with KCl 20mEq BID -Recheck BMP in AM -Start spironolactone 25mg PO daily Decompensated CHF -Patient likely has a combined diastolic and systolic heart failure -The patient would benefit from an echocardiogram as an outpatient. I believe the plan was that the patient was going to have an echocardiogram when she followed up with cardiology in the near future. -Start Lasix 40mg PO BID @ 0700 and 1300 -Start spironolactone 25mg PO daily -Strict I&Os -Daily standing weight Acute on Chronic Normocytic Anemia -Baseline hemoglobin appears to be around 10-11. -Recent drop in hemoglobin is likely secondary to acute blood loss related to her recent PPM placement and post-pacemaker hematoma. -No signs of active bleeding -Iron studies on 12/22/2016 were all unremarkable -Given the patient's significant heart history, the patient was transfused 2 Units of PRBCs on 12/25/2016. She was given 40mg of IV Lasix following each unit. CHRONIC STABLE MEDICAL CONDITIONS: Third-degree AV block: The patient was found to have a third-degree AV block on 12/08/2016, at which time she was transferred to the [facility] for further management. A temporary pacemaker was placed on 12/08/2016. Cardiologists at the [facility] felt that the third-degree AV block was likely secondary to ischemia. The patient had a cardiac cath and a drug- eluting stent was placed in the mid RCA on 12/09/2016. A permanent pacemaker was placed on 12/10/2016. The patient is completely pacemaker dependent. Benign essential hypertension: Goal blood pressure is less than 140/90 mmHg. Continue home medications amlodipine 2.5mg BID, carvedilol 25 mg BID, Hyperlipidemia: Continue home statin. CAD with recent PCI: The patient is on appropriate treatment with daily aspirin , Plavix, high-intensity statin (atorvastatin). The patient had a cardiac cath and a drug-eluting stent was placed in the mid RCA on 12/09/2016. Hypothyroidism: Continue home dose of levothyroxine. GERD: Continue home PPI. Continue Tums as needed. Type 2 diabetes mellitus: Check BG AC, HS and PRN. Continue correctional insulin TID with meals as needed. Glaucoma: Continue home eye drops. VTE PPX: SCDs, heparin Q12H CODE STATUS: Full Code DISPOSITION: Continue to monitor sodium level over the weekend with plans to discharge the patient back to [facility] on 12/29/2016. - Problems/Diagnosis (1) Hyponatremia Problem: Acute (2) Normocytic anemia Problem: Acute (3) Hypokalemia Problem: Acute (4) Congestive heart failure Problem: Acute Qualifiers: Congestive heart failure type: unspecified congestive heart failure type Congestive heart failure chronicity: acute Qualified Code(s): I50.9 - Heart failure, unspecified (5) Third degree atrioventricular block Problem: Resolved (6) Benign essential hypertension Problem: Chronic (7) HLD (hyperlipidemia) Problem: Chronic Qualifiers: Hyperlipidemia type: unspecified Qualified Code(s): E78.5 - Hyperlipidemia , unspecified (8) CAD (coronary artery disease) Problem: Chronic (9) Hypothyroidism Problem: Chronic (10) GERD (gastroesophageal reflux disease) Problem: Chronic (11) Type 2 diabetes mellitus Problem: Chronic (12) Glaucoma Problem: Chronic
[2016-12-26] MEDS ORDERED: ALBUTEROL SULFATE 2.5 MG/3 ML VIAL.NEB IH PRN (13:57)
[2016-12-26] MEDS: ROSUVASTATIN CALCIUM 20 MG TABLET PO SCH (20:03)
[2016-12-26] MEDS: POTASSIUM CHLORIDE 20 MEQ TABLET.SA PO SCH (20:03)
[2016-12-26] MEDS: LATANOPROST 25 DROP BTL OP SCH (20:03)
[2016-12-26] MEDS ORDERED: POTASSIUM CHLORIDE 20 MEQ TABLET.SA PO SCH (21:00)
[2016-12-27] MEDS: HEPARIN SODIUM,PORCINE 5,000 UNITS/ML VIAL SC SCH (05:16)
[2016-12-27 06:13] LABS: Hematocrit 29.5 % (37.0-47.0); Hemoglobin 10.4 gm/dL (12.5-16.0); Mean Cell Volume 90.2 fl (78-100); Mean Corpuscular Hemoglobin 31.8 pg (27-31); Mean Corpuscular Hgb Conc 35.3 g/dl (32-36); Mean Platelet Volume 9.8 fl (6.0-9.5); Platelet Count 230 K/mm3 (150-450); Red Blood Count 3.27 M/mm3 (4.2-5.4); Red Cell Distribution Width 15.8 % (11.5-14.0); White Blood Count 7.4 K/mm3 (4.0-10.5)
[2016-12-27 06:29] LABS: Anion Gap 11.4 mmol/L (6.8-13.8); BUN/Creatinine Ratio 22.3 (9.0-21.6); Calcium * 8.8 mg/dL (7.9-10.9); Potassium 3.4 mmol/L (3.4-4.6)
[2016-12-27] MEDS: INSULIN LISPRO 100 UNITS/ML VIAL SC SCH (06:35)
[2016-12-27] MEDS ORDERED: FUROSEMIDE 40 MG TABLET PO SCH ×2 (07:00→13:00)
[2016-12-27] MEDS: BRIMONIDINE TARTRATE 50 DROP BTL OP SCH (08:45)
[2016-12-27] MEDS: CALCIUM POLYCARBOPHIL 625 MG TABLET PO SCH (08:46)
[2016-12-27] MEDS: MULTIVITAMINS 1 TAB TAB.CHEW PO SCH (08:46)
[2016-12-27] MEDS: POTASSIUM CHLORIDE 20 MEQ TABLET.SA PO SCH (08:46)
[2016-12-27] MEDS: BETA-CAROTENE(A) W-C , E/MIN 1 TAB TABLET PO SCH (08:47)
[2016-12-27] MEDS: PANTOPRAZOLE SODIUM 40 MG TABLET.EC PO SCH (08:47)
[2016-12-27] MEDS: CARVEDILOL 25 MG TABLET PO SCH (08:47)
[2016-12-27] MEDS: amLODIPine BESYLATE 5 MG TABLET PO SCH (08:47)
[2016-12-27] MEDS: CLOPIDOGREL BISULFATE 75 MG TABLET PO SCH (08:47)
[2016-12-27] MEDS: SPIRONOLACTONE 25 MG TABLET PO SCH (08:48)
[2016-12-27] MEDS: ASPIRIN 81 MG TABLET.DR PO SCH (08:48)
[2016-12-27] MEDS: LEVOTHYROXINE SODIUM 50 MCG TABLET PO SCH (08:48)
--- NOTE | 2016-12-27 09:58 | DS ---
(1) Congestive heart failure Problem: Acute Qualifiers: Congestive heart failure type: unspecified congestive heart failure type Congestive heart failure chronicity: acute Qualified Code(s): I50.9 - Heart failure, unspecified (2) Hyponatremia Problem: Resolved (3) Normocytic anemia Problem: Acute (4) Benign essential hypertension Problem: Chronic (5) CAD (coronary artery disease) Problem: Chronic (6) GERD (gastroesophageal reflux disease) Problem: Chronic (7) Hypothyroidism Problem: Chronic (8) Type 2 diabetes mellitus Problem: Chronic (9) Third degree atrioventricular block Problem: Resolved Description of Stay: ADMISSION DATE: 12/22/2016 DISCHARGE DATE: 12/27/2016 ADMISSION HPI BY MARK BERGERON: Sulema is an 86 year old female patient of Dr Salcido with a PMH of CAD, 3rd degree heart block s/p pacemaker, HTN, HLD, and DM T2 who presents to the ER today with c/o dyspnea, fatigue and edema. 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 Patient and family indicate that post heart cath, patient's groin site bled extensively post op and the patient is still significantly bruised. ER eval shows hgb/hct 7.9/23.2. BNP 3104. UA negative. K+ 5.0, creatinine 1.05. chest xray shows small bilat basal effusions. patient was given 20 mg iv lasix in the ER and states she has had improvement in her dyspnea. Patient to be admitted to [facility]. PROBLEM BASED HOSPITAL COURSE: Hypervolemic Hypotonic Hyponatremia -Serum osmolality low at 269 which is consistent with hypotonic hyponatremia (excess of free water relative to sodium). Urine sodium low. The patients clinical picture as well as her laboratory findings are consistent with hypervolemic hypotonic hyponatremia. -Patient started on a fluid restriction of 2000cc per day while in the hospital. She was discharged on a fluid restriction of 2500cc per day. -Sodium level nicely improved after fluid restriction was started -Of note, the patient was discharged from the [facility] on 2016, her sodium level at that time was 128. -Recheck BMP on 12/29/2016 and have results sent to Dr. De León's office for review Hypokalemia -Replace as necessary during her admission. -Start daily by mouth potassium replacement with KCl 20mEq BID -Start spironolactone 25mg PO daily -Recheck BMP on 12/29/2016 and have results sent to Dr. 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 I believe the plan was that the patient was going to have an echocardiogram when she followed up with cardiology in the near future. -Start Lasix 40mg PO BID @ 0700 and 1300 -Start spironolactone 25mg PO daily Acute on Chronic Normocytic Anemia -Baseline hemoglobin appears to be around 10-11. -Recent drop in hemoglobin is likely secondary to acute blood loss related to her recent PPM placement and post-pacemaker hematoma. -No signs of active bleeding -Iron studies on 12/22/2016 were all unremarkable -Given the patient's significant heart history, the patient was transfused 2 Units of PRBCs on 12/25/2016. She was given 40mg of IV Lasix following each unit. CHRONIC STABLE MEDICAL CONDITIONS: Third-degree AV block: The patient was found to have a third-degree AV block on 12/08/2016, at which time she was transferred to the [facility] for further management. A temporary pacemaker was placed on 12/08/2016. Cardiologists at the [facility] felt that the third-degree AV block was likely secondary to ischemia. The patient had a cardiac cath and a drug- eluting stent was placed in the mid RCA on 12/09/2016. A permanent pacemaker was placed on 12/10/2016. The patient is completely pacemaker dependent. Benign essential hypertension: Goal blood pressure is less than 140/90 mmHg. Continue home medications. Hyperlipidemia: Continue home statin. CAD with recent PCI: The patient is on appropriate treatment with daily aspirin , Plavix, high-intensity statin (atorvastatin). The patient had a cardiac cath and a drug-eluting stent was placed in the mid RCA on 12/09/2016. She will need to remain on dual antiplatelet therapy for at least 1 year. Hypothyroidism: Continue home dose of levothyroxine. GERD: Continue home PPI. Continue Tums as needed. Type 2 diabetes mellitus: Check BG AC, HS and PRN. Patient treated with correctional insulin TID with meals as needed. Home insulin regimen resumed on discharge. Glaucoma: Continue home eye drops. VTE PPX: SCDs, heparin Q12H CODE STATUS: Full Code DISPOSITION: The patient was discharged in stable condition to [facility] on 12/27/2016. FOLLOW-UP APPOINTMENTS: -I (Dr. De León) will see the patient at [facility] during my afternoon rounds on 12/21/2016 RADIOLOGY REPORTS: PA and lateral chest x-ray on 12/22/2016 showed: The cardiac silhouette is borderline in size. There is been previous median sternotomy. Again seen is a cardiac pacer in the right pectoral pocket with associated right atrial and right ventricular leads. The mediastinum and hilum are within normal limits. There is a questionable tiny effusion the right costophrenic angle. There is a probable small left pleural effusion with associated atelectasis. The remaining lung [place] are clear. There is mild scattered interstitial fibrotic change. IMPRESSION: Previous median sternotomy with associated cardiac pacer. Small left basilar effusion with associated atelectasis. Tiny right basal effusion. Abdominal x-ray flat with upright on 12/22/2016 showed: There are small amounts of gas identified within the stomach, small bowel, colon. I do not see evidence for gaseous dilation of the bowel, air-fluid levels, or free air. There is a moderate amount of stool identified in the ascending colon. There are small effusions in the right and left lung bases. Im not convinced of radiodensities overlying the kidneys. IMPRESSION: Nonspecific bowel gas pattern. Small effusions with atelectasis in both lung bases. Procedures Performed: none Results and Findings: Laboratory Tests 12/23/16 12/23/16 12/24/16 07:10 07:10 09:30 Hgb 7.6 L* Hct 21.8 L* MCV 94.4 Plt Count 248 Sodium 127 L 122 L Plasma Sodium Potassium Chloride Creatinine Serum Osmolality B-Natriuretic Peptide 4870 H Urine Osmolality Ur Random Creatinine Ur Random Sodium Ur Random Potassium Ur Random Chloride Ur Random Urea Urine Calcium 12/24/16 12/24/16 12/24/16 14:20 14:20 14:20 Hgb Hct MCV Plt Count Sodium Plasma Sodium Potassium Chloride Creatinine Serum Osmolality B-Natriuretic Peptide Urine Osmolality Ur Random Creatinine 116.2 Ur Random Sodium 4 L Ur Random Potassium 56.7 Ur Random Chloride 42 Ur Random Urea 724 Urine Calcium 2.0 12/24/16 12/24/16 12/25/16 14:20 19:15 06:33 Hgb Hct MCV Plt Count Sodium 122 L 124 L Plasma Sodium Potassium Chloride Creatinine Serum Osmolality B-Natriuretic Peptide Urine Osmolality 464 Ur Random Creatinine Ur Random Sodium Ur Random Potassium Ur Random Chloride Ur Random Urea Urine Calcium 12/25/16 12/25/16 12/26/16 19:15 Unknown 05:15 Hgb Hct MCV Plt Count Sodium 125 L 127 L Plasma Sodium Potassium Chloride Creatinine Serum Osmolality 269 L B-Natriuretic Peptide Urine Osmolality Ur Random Creatinine Ur Random Sodium Ur Random Potassium Ur Random Chloride Ur Random Urea Urine Calcium 12/27/16 12/27/16 06:05 06:05 Hgb 10.4 L Hct 29.5 L MCV 90.2 Plt Count 230 Sodium 133 Plasma Sodium 134 Potassium 3.4 Chloride 93 L Creatinine 1.12 Serum Osmolality B-Natriuretic Peptide Urine Osmolality Ur Random Creatinine Ur Random Sodium Ur Random Potassium Ur Random Chloride Ur Random Urea Urine Calcium Discharge Disposition: [facility] Disposition: [facility] Condition: Stable Discharge Activity: Activity as tolerated Discharge Diet: Low salt, Other - Fluid restriction of 2500cc per day Senior Living Therapy: Physicial Therapy, Occupation Therapy Referrals: Dot Salcido MD [Primary Care Provider] - Additional Patient Instructions (free text): [facility]. Follow-up with PCP, Dr. Salcido, within 1 week Complete Home Medications List: Complete Home Medication List: Aspirin [Aspirin EC] 81 mg PO DAILY 06/11/12 Atorvastatin Calcium [Lipitor] 40 mg PO DAILY 06/11/12 Levothyroxine Sodium 50 mcg PO DAILY 06/11/12 Acetaminophen [Tylenol] 325 mg PO Q4H PRN 12/08/16 Amlodipine Besylate [Norvasc] 2.5 mg PO BID 12/22/16 B2/Vits A,C,E/Lut/Zeaxanth/Min [Icaps Tablet] 1 each PO DAILY 12/22/16 Brimonidine Tartrate [Brimonidine 0.2% Ophthalmic Solution] 1 drop OP BID Calcium Carbonate [Calcium Antacid] 1 tab PO TID PRN 12/22/16 Carvedilol [Coreg] 25 mg PO BID 12/22/16 Clopidogrel Bisulfate [Plavix] 75 mg PO DAILY 12/22/16 Diphenhydramine HCl 25 mg PO Q4H PRN 12/22/16 Insulin Aspart Prot/Insuln Asp [Novolog Mix 70/30] 28 units SQ BID 12/22/16 Latanoprost [Xalatan] 1 drop OP HS 12/22/16 Nitroglycerin [Nitro-Dur] 0.4 mg TD PRN 12/22/16 Pantoprazole Sodium [Protonix] 40 mg PO DAILY 12/22/16 Pediatric Multivitamin No.49 [Flintstones Gummies] 2 each PO DAILY 12/22/16 Polyethylene Glycol 3350 [Miralax] 17 gm PO DAILY PRN 12/22/16 Wheat Dextrin [Benefiber] 2 tbs PO DAILY 12/22/16 Furosemide [Lasix] 40 mg PO 0700 tablet 12/27/16 Furosemide [Lasix] 40 mg PO 1300 tablet 12/27/16 Potassium Chloride [K-Dur] 20 meq PO BIDWM tablet.sa 12/27/16 Spironolactone [Aldactone] 25 mg PO DAILY tablet 12/27/16 Amb Orders for Discharge: Basic Metabolic Panel Time Frame: 12/29/16, Location: Determined By Patient Hemogram Time Frame: 12/29/16, Location: Determined By Patient
[2016-12-27 10:12] VITALS: BP 147/45
== END 2016-12-27 11:20 | DRG 292 ==
LOC: ER 16:42 → MS 18:05 → OBSVTOIN 12-23 08:45
PROVIDERS: ADMIT Family Medicine; ATTEND Internal Medicine
DX: I50.41 Acute combined systolic (congestive) and diastolic (congestive) heart failure (principal); E87.1 Hypo-osmolality and hyponatremia; R53.1 Weakness; I25.10 Atherosclerotic heart disease of native coronary artery without angina pectoris; I10 Essential (primary) hypertension; E78.5 Hyperlipidemia, unspecified; E87.5 Hyperkalemia; D64.9 Anemia, unspecified; E11.9 Type 2 diabetes mellitus without complications; Z95.5 Presence of coronary angioplasty implant and graft; Z95.1 Presence of aortocoronary bypass graft; Z79.82 Long term (current) use of aspirin; Z88.2 Allergy status to sulfonamides
CPT/HCPCS: 36415; 71020; 74020; 80048; 80053; 81001; 82150; 82310; 82436; 82570; 83540; 83550; 83690; 83880; 83930; 83935; 84133; 84145; 84300; 84540; 85014; 85018; 85025; 85027; 86850; 86900; 87081; 93005; 94640; 96374; 97110; 97116; 97162; 99284; G0378; P9016

== ENCOUNTER 2017-01-10 07:04 | Inpatient (IN) | payer MEDICARE ==
--- NOTE | 2017-01-10 07:32 | ERNOTE ---
<Shruti Beth - Last Filed: 01/10/17 07:29> Medical Problem HPI - General Time Seen by Provider: 01/10/17 07:07 Source: EMS, halfway records, other - halfway staff Exam Limitations: clinical condition - Immun/Allergies/Home Medications Immunizations: IMMUNIZATION HX Immunizations Up to Date No History of Influenza Vaccine No Hx Pneumococcal Vaccination No Allergies/Adverse Reactions: Allergies clarithromycin [From Biaxin] Allergy (Mild, Verified 12/23/16 09:41) diclofenac [Diclofenac] Allergy (Mild, Verified 12/23/16 09:41) diclofenac sodium [From Voltaren] Allergy (Mild, Verified 12/23/16 09:41) penicillin G Allergy (Mild, Verified 12/23/16 09:41) rabeprazole sodium [From Aciphex] Allergy (Mild, Verified 12/23/16 09:41) Hives Sulfa (Sulfonamide Antibiotics) [Sulfa(Sulfonamide Antibiotics)] Allergy (Mild, Verified 12/23/16 09:41) rash Home Medications: HOME MEDICATIONS RX: Aspirin [Aspirin EC] 81 mg PO DAILY 06/11/12 [Last Taken 06/11/12 09:00] RX: Atorvastatin Calcium [Lipitor] 40 mg PO DAILY 06/11/12 [Last Taken 06/11/12 09:00] RX: Levothyroxine Sodium 50 mcg PO DAILY 06/11/12 [Last Taken 06/11/12 09:00] RX: Acetaminophen [Tylenol] 325 mg PO Q4H PRN 12/08/16 [Last Taken Unknown] RX: Amlodipine Besylate [Norvasc] 2.5 mg PO BID 12/22/16 [Last Taken Unknown] RX: B2/Vits A,C,E/Lut/Zeaxanth/Min [Icaps Tablet] 1 each PO DAILY 12/22/16 [ Last Taken Unknown] RX: Brimonidine Tartrate [Brimonidine 0.2% Ophthalmic Solution] 1 drop OP BID [Last Taken Unknown] RX: Calcium Carbonate [Calcium Antacid] 1 tab PO TID PRN 12/22/16 [Last Taken Unknown] RX: Carvedilol [Coreg] 25 mg PO BID 12/22/16 [Last Taken Unknown] RX: Clopidogrel Bisulfate [Plavix] 75 mg PO DAILY 12/22/16 [Last Taken Unknown] RX: Diphenhydramine HCl 25 mg PO Q4H PRN 12/22/16 [Last Taken Unknown] RX: Insulin Aspart Prot/Insuln Asp [Novolog Mix 70/30] 25 units SQ BID 12/22/16 [Last Taken Unknown] RX: Latanoprost [Xalatan] 1 drop OP HS 12/22/16 [Last Taken Unknown] RX: Nitroglycerin [Nitro-Dur] 0.4 mg TD PRN 12/22/16 [Last Taken Unknown] RX: Pantoprazole Sodium [Protonix] 40 mg PO DAILY 12/22/16 [Last Taken Unknown] RX: Pediatric Multivitamin No.49 [Flintstones Gummies] 2 each PO DAILY 12/22/16 [Last Taken Unknown] RX: Polyethylene Glycol 3350 [Miralax] 17 gm PO DAILY PRN 12/22/16 [Last Taken Unknown] RX: Wheat Dextrin [Benefiber] 2 tbs PO DAILY 12/22/16 [Last Taken Unknown] RX: Furosemide [Lasix] 40 mg PO 0700 tablet 12/27/16 [Last Taken Unknown] RX: Furosemide [Lasix] 40 mg PO 1300 tablet 12/27/16 [Last Taken Unknown] RX: Potassium Chloride [K-Dur] 20 meq PO BIDWM tablet.sa 12/27/16 [Last Taken Unknown] RX: Spironolactone [Aldactone] 25 mg PO DAILY tablet 12/27/16 [Last Taken Unknown] Insulin Regular, Human [Humulin R] 0 - 20 unit SQ TID 01/10/17 [Last Taken Unknown] Saliva Substitute Combo No.9 [Biotene Pbf] 473 ml MM PRN PRN 01/10/17 [Last Taken Unknown] - History of Present History Narrative: Here for having had one episode of Syncope this am prior to presentation to ED. She is a resident of a halfway. She has diabetes , she recently had a pacemaker placed Review of Systems - Narrative Narrative: unable to get as pt is awake but is not talking - Patient's Past Medical History Patient History - Medical: Diabetes Type 2, GERD, Glaucoma, Renal Disease, Other Patient History - Cardiac/Respiratory: Coronary Heart Disease, Hypertension, Hyperlipidemia Patient History - Cancer: No Hx of Cancer Patient History - Surgical Procedures: Hysterectomy, Pacemaker, Total Hip Replacement, Other Patient History - Other: None - Family History Father Family History - Medical: Family History - Cardiac/Respiratory: No pertinent hx Family History - Cancer: Other - Social History Living Situations: halfway Abuse History: No History of abuse Psych History: No pertinent hx Smoking Status: Never smoker Have you smoked in the past 12 months: No Alcohol Use: none Drug Use: none - Immunizations Immunizations Up to Date: No Hx Pneumococcal Vaccination: No History of Influenza Vaccine: No Physical Exam - Physical Exam General Appearance: Present: wd/wn, other - she is awake and makes eye contact but she does not speak with any staff. She does normally speak and carry on at the halfway Head Exam: Present: normal inspection Respiratory: Present: no respiratory distress, normal breath sounds, no accessory muscle use Cardiovascular/Chest: Present: regular rate, rhythm, no murmur, normal peripheral pulses ED Progress - Vital Signs Patient's Vital Signs:: I have reviewed the patient's vital signs. - Transfer of Care Physician Sign Out: Shruti Beth Receiving Physician: Erica Adams Departure - Departure Clinical Impression: Syncope Qualifiers: Syncope type: unspecified Qualified Code(s): R55 - Syncope and collapse Disposition: [facility] Condition: Stable <Erica Adams - Last Filed: 01/10/17 13:28> Medical Problem HPI - Immun/Allergies/Home Medications Immunizations: IMMUNIZATION HX Immunizations Up to Date No History of Influenza Vaccine No Hx Pneumococcal Vaccination No ED Progress - Date and Time Seen: Date and Time: Patient was signed out from [email or web address] Patient's is 86-year-old female brought in for evaluation of altered mental status found at 4 AM this morning in the cafeteria found unresponsive with some concerns for seizure. Patient evaluation initially is completely altered she is awake and alert her daughters are here providing a lot of history patient's initial lab work demonstrates a concerns for septicemia she has elevated lactic acid and she has a urine culture from yesterday growing out greater than 100,000 g negative bacilli. She had received 1 dose of Levaquin. Of note sepsis indication would be 30 ML' s per kilo but with her history of CHF or current conservative and give her a loading fluid bolus of 20 mL/kg patient is alert at this time in edition her lungs examination clear her vital signs were reviewed because of allergy to penicillin she's not a candidate for cephalosporins the daughter not able to tell me what kind of allergy she has will opt for IV Levaquin and plus minus gentamicin depending upon her clinical response. Will get patient admitted to her primary care doctor is Dr. Cass De León. 01/10/17 08:58 01/10/17 12:59 CT of the head was noted to be less than optimal but essentially negative for any stroke. 01/10/17 13:01 We will - Results and Orders Patient's Lab Results:: I have reviewed the patient's lab results. - Indication and - Vital Signs Vital Signs: Vital Signs 01/10/17 07:22 Temperature 36.9 C Pulse Rate 84 Respiratory 18 Rate Blood Pressure 182/59 O2 Sat by Pulse 95 Oximetry Procedures Intubation Method: endotrachial with venti Tube Size (cm): 7.0 Medications: Other - rocuronium 50 mg IV /etomidate 3 mg IV Intubation Complications: no complications, oral-unsuccessful attempt - first attempt unsuccessful due to increased secretions and posterior pharynx., nosebleed - from nasal gastric tube insertion Post Intubation Xray: Yes Complications: Pt zo procedure well Progress/Xray Impression: ET tube placement and NG tube placement confirmed by x -ray. Comments: ER was called for a magnet to room 112 went to the room for evaluation at that time I found patient room 112 with status post a seizure witnessed by the nurse patient had been given Ativan 2 mg IV. Patient's situation revealed that she was actually breathing her pulse oximetry is 93% her blood pressure was 167/62 patient was known as 62 kg. Decision was made to intubate as her sats were dropping to 93% she was bagged with a nasal trumpet in place in the right nares. Patient was observed examination hypoventilating and in a postictal state lots of secretions and the oral airway. We prepped for intubation with etomidate 3 mg IV at 11:33 followed by 11:35 am rocuronium 50 mg IV patient first attempt with a 7-0 tube revealed gastric intubation and no color change on CO2 detector. Prior to second attempt this patient was suctioned and second attempt was successful with excellent CO2 color change, bilateral auscultation revealed significant bronchodilator I on the right with good aeration on the left. Patient had confirmation by chest x-ray as as well as by auscultation. Well and demonstrated just above just right at above paulette. Patient's was accepted in transfer to the [facility] to the medical ICU. Etiology of the seizure is still unknown patient's repeat lactate was improved and her and her troponin was negative patient continued to be paced rhythm with blood pressures in the 160s she was given fentanyl 25 g at bedside just prior to transfer for pain control she was oxygenating 100% her CO2 is 32 she was stable for transfer chest x-ray did show significant pattern suggestive for possible pulmonary edema. Patient's CHF exacerbation patient was stabilized and transferred to the [facility] and clinics please see [facility] note as well. Plan - Plan Plan: [facility] repeat the lactic acid continue IV fluid hydration this case for admission was discussed with with Azucena Saavedra Admit to service of Dr. pink. CT report is pending.
[2017-01-10 07:46] LABS: Hematocrit 34.7 % (37.0-47.0); Mean Cell Volume 90.6 fl (78-100); Mean Corpuscular Hemoglobin 31.3 pg (27-31); Mean Corpuscular Hgb Conc 34.6 g/dl (32-36); Mean Platelet Volume 10.4 fl (6.0-9.5); Neutrophil # 5.6 K/mm3 (1.3-6.0); Neutrophil % 76.8 % (42-75.0); Platelet Count 215 K/mm3 (150-450); Red Blood Count 3.83 M/mm3 (4.2-5.4); Red Cell Distribution Width 14.4 % (11.5-14.0); White Blood Count 7.4 K/mm3 (4.0-10.5)
[2017-01-10 07:59] LABS: Albumin * 3.7 gm/dl (3.4-5.0); Anion Gap 15.2 mmol/L (6.8-13.8); BUN/Creatinine Ratio 22.7 (9.0-21.6); Bilirubin, Total 1.3 mg/dL (0.0-1.1); Ca. Corrected For Albumin 9.5 mg/dL (8.4-10.2); Calcium * 9.6 mg/dL (7.9-10.9); Carbon Dioxide 26.5 mmol/L (24-32.6); Potassium 4.7 mmol/L (3.4-4.6); Total Protein 7.3 gm/dL (6.2-8.2)
[2017-01-10] MEDS ORDERED: NORMAL SALINE 1,000 ML IV ONE (08:07)
[2017-01-10 08:33] LABS: Urine Bilirubin Negative (NEGATIVE); Urine Ketone Negative (NEGATIVE); Urine Nitrite Negative (NEGATIVE); Urine Protein Negative (NEGATIVE); Urine Urobilinogen Normal (NORMAL); Urine pH 6.5 pH (5.0-7.0)
[2017-01-10 08:34] LABS: Urine Amorphous Sediment Moderate - 2+ (NONE-FEW); Urine Appearance Clear; Urine Bacteria TRACE; Urine Blood 5 /ul (NEGATIVE); Urine Color Yellow; Urine RBC 0-5 /hpf (0-5)
[2017-01-10] MEDS ORDERED: LEVOFLOXACIN/D5W 500 MG/100 ML BAG IV SCH (08:45)
[2017-01-10 10:47] LABS: Anion Gap 14.6 mmol/L (6.8-13.8); BUN/Creatinine Ratio 23.3 (9.0-21.6); Blood Urea Nitrogen 38 mg/dL (3-23); Calcium * 8.8 mg/dL (7.9-10.9); Carbon Dioxide 25.4 mmol/L (24-32.6); Chloride 95 mmol/L (97-106); Glucose * 212 mg/dL (70-110); Sodium 131 mmol/L (132-142)
[2017-01-10 10:52] VITALS: BP 157/52
[2017-01-10] MEDS ORDERED: LORazepam 2 MG/ML DISP.SYRIN IV ONE (11:05)
[2017-01-10] MEDS ORDERED: LORazepam 2 MG/ML DISP.SYRIN ONE (11:06)
[2017-01-10] MEDS ORDERED: NOREPINEPHRINE BITARTRATE 4 MG in DEXTROSE 5 % IN WATER 500 ML IV PRN ×2 (11:31)
[2017-01-10] MEDS ORDERED: fentaNYL CITRATE/PF 50 MCG/ML AMPUL ONE (11:35)
[2017-01-10] MEDS ORDERED: MIDAZOLAM HCL/PF 5 MG/ML VIAL ONE (11:36)
[2017-01-10 12:07] LABS: CKMB 0.9 ng/mL (0.0-9.0); Troponin I 0.042 ng/ml (0.00-0.10)
[2017-01-10] MEDS ORDERED: FUROSEMIDE 10 MG/ML VIAL ONE (12:17)
[2017-01-10] MEDS ORDERED: ETOMIDATE 2 MG/ML VIAL IV ONE (12:45)
[2017-01-10] MEDS ORDERED: SUCCINYLCHOLINE CHLORIDE 20 MG/ML VIAL IV ONE (12:45)
[2017-01-10] MEDS ORDERED: ROCURONIUM BROMIDE 10 MG/ML VIAL IV ONE (12:45)
--- NOTE | 2017-01-10 13:29 | HP ---
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. 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 Vital signs at the [facility] when found unresponsive: eyes fixed, BP 151/76, 96% on RA, blood sugar 251, temp 97.9, HR 77, RR 22. ER eval revealed unremarkable cbc. CMP remarkable for Na+ 128, BUN/Cr 44/1.94, glu 258, total bilirubin 1.3. lactic acid 3.3. patient had been started on an antibiotic 3 days prior for a UTI and a repeat UA in the ER showed the UTI to actually be improved. CT of the head was negative for any intracranial hemorrhage or mass effect. Chest xray was negative for any acute abnormalities. Patient was to be admitted for acute mental status changes for further work up. Upon admission to the floor, nursing staff indicated that patient started to have a seizure and a MATERIAL EXPEDITER was called. Patient was given 2 mg IV ativan. EKG was done and showed a paced rhythm. Airway was protected by ERP with ET intubation. blood pressure initially started to quickly drop but responded to iv fluid intervention. norepinephrine drip was ordered as a precaution should the patient's blood pressure drop again but was not started. cardiac panel was negative for [place]. Dr. Alston arranged for transfer of the patient to [facility] for further medical care. Patient was transferred via airevac in critical condition. - Patient's Past Medical History Patient History - Medical: Diabetes Type 2, GERD, Glaucoma, Renal Disease, Other Patient History - Cardiac/Respiratory: Coronary Heart Disease, Hypertension, Hyperlipidemia Patient History - Cancer: No Hx of Cancer Patient History - Surgical Procedures: Hysterectomy, Pacemaker, Total Hip Replacement, Other Patient History - Other: None - Family History Father Family History - Medical: Family History - Cardiac/Respiratory: No pertinent hx Family History - Cancer: Other - Social History Living Situations: residential Abuse History: No History of abuse Psych History: No pertinent hx Smoking Status: Never smoker Have you smoked in the past 12 months: No Do you dip or chew tobacco: No Patient requests Smoking Cessation Consult: No Initiate information on Smoking Cessation: No Alcohol Use: none Drug Use: none - Immunizations Immunizations Up to Date: No Hx Pneumococcal Vaccination: No History of Influenza Vaccine: No Review Of Systems (GEN) - Review of Systems Generalized/Overall Review: Present: No Symptoms Reported - unable to obtain due to patient condition Allergies/Adverse Reactions: Allergies Allergy/AdvReac Type Severity Reaction Status Date / Time clarithromycin [From Biaxin] Allergy Mild Verified 12/23/16 09:41 diclofenac [Diclofenac] Allergy Mild Verified 12/23/16 09:41 diclofenac sodium Allergy Mild Verified 12/23/16 09:41 [From Voltaren] penicillin G Allergy Mild Verified 12/23/16 09:41 rabeprazole sodium Allergy Mild Hives Verified 12/23/16 09:41 [From Aciphex] Sulfa (Sulfonamide Allergy Mild rash Verified 12/23/16 09:41 Antibiotics) [Sulfa(Sulfonamide Antibiotics)] Home Medications: HOME MEDICATIONS Aspirin [Aspirin EC] 81 mg PO DAILY 06/11/12 [Last Taken 06/11/12 09:00] Atorvastatin Calcium [Lipitor] 40 mg PO DAILY 06/11/12 [Last Taken 06/11/12 09: 00] Levothyroxine Sodium 50 mcg PO DAILY 06/11/12 [Last Taken 06/11/12 09:00] Acetaminophen [Tylenol] 325 mg PO Q4H PRN 12/08/16 [Last Taken Unknown] Amlodipine Besylate [Norvasc] 2.5 mg PO BID 12/22/16 [Last Taken Unknown] B2/Vits A,C,E/Lut/Zeaxanth/Min [Icaps Tablet] 1 each PO DAILY 12/22/16 [Last Taken Unknown] Brimonidine Tartrate [Brimonidine 0.2% Ophthalmic Solution] 1 drop OP BID [Last Taken Unknown] Calcium Carbonate [Calcium Antacid] 1 tab PO TID PRN 12/22/16 [Last Taken Unknown] Carvedilol [Coreg] 25 mg PO BID 12/22/16 [Last Taken Unknown] Clopidogrel Bisulfate [Plavix] 75 mg PO DAILY 12/22/16 [Last Taken Unknown] Diphenhydramine HCl 25 mg PO Q4H PRN 12/22/16 [Last Taken Unknown] Insulin Aspart Prot/Insuln Asp [Novolog Mix 70/30] 25 units SQ BID 12/22/16 [ Last Taken Unknown] Latanoprost [Xalatan] 1 drop OP HS 12/22/16 [Last Taken Unknown] Nitroglycerin [Nitro-Dur] 0.4 mg TD PRN 12/22/16 [Last Taken Unknown] Pantoprazole Sodium [Protonix] 40 mg PO DAILY 12/22/16 [Last Taken Unknown] Pediatric Multivitamin No.49 [Flintstones Gummies] 2 each PO DAILY 12/22/16 [ Last Taken Unknown] Polyethylene Glycol 3350 [Miralax] 17 gm PO DAILY PRN 12/22/16 [Last Taken Unknown] Wheat Dextrin [Benefiber] 2 tbs PO DAILY 12/22/16 [Last Taken Unknown] Furosemide [Lasix] 40 mg PO 0700 tablet 12/27/16 [Last Taken Unknown] Furosemide [Lasix] 40 mg PO 1300 tablet 12/27/16 [Last Taken Unknown] Potassium Chloride [K-Dur] 20 meq PO BIDWM tablet.sa 12/27/16 [Last Taken Unknown] Spironolactone [Aldactone] 25 mg PO DAILY tablet 12/27/16 [Last Taken Unknown] Insulin Regular, Human [Humulin R] 0 - 20 unit SQ TID 01/10/17 [Last Taken Unknown] Saliva Substitute Combo No.9 [Biotene Pbf] 473 ml MM PRN PRN 01/10/17 [Last Taken Unknown] Exam - Exam Vital Signs: Vital Signs - Last Taken Temp 36.8 C 01/10/17 09:26 Pulse 83 01/10/17 09:26 Resp 16 01/10/17 09:26 BP 157/52 01/10/17 09:26 Pulse Ox 95 01/10/17 09:26 Constitutional: Present: Other - unresponsive, smaking lips Neck: Present: supple Breasts: Present: Exam deferred Respiratory: Present: respiratory distress, decreased breath sounds, other - shallow breathing, poor breathing effort Cardiovascular/Chest: Present: regular rate, rhythm, no edema Peripheral Pulses: radial (R): 2+, radial (L): 2+ Abdomen: Present: soft, nondistended /Rectal: Present: Exam deferred Extremity: Present: normal inspection, normal capillary refill Skin Exam: Present: warm/dry, no cyanosis, pallor Diagnostic Studies: Abnormal Lab Results 01/10/17 Range/Units 10:29 Sodium 131 L (132-142) mmol/L Chloride 95 L (97-106) mmol/L Anion Gap 14.6 H (6.8-13.8) mmol/L BUN 38 H (3-23) mg/dL Creatinine 1.63 H (0.4-1.4) mg/dL Est GFR (Non-Af Amer) 32 L D (60-130) mL/min BUN/Creatinine Ratio 23.3 H (9.0-21.6) Random Glucose 212 H (70-110) mg/dL Laboratory Results WBC 7.4 K/mm3 (4.0-10.5) 01/10/17 07:40 RBC 3.83 M/mm3 (4.2-5.4) L 01/10/17 07:40 Hgb 12.0 gm/dL (12.5-16.0) L 01/10/17 07:40 Hct 34.7 % (37.0-47.0) L 01/10/17 07:40 MCV 90.6 fl (78-100) 01/10/17 07:40 MCH 31.3 pg (27-31) H 01/10/17 07:40 MCHC 34.6 g/dl (32-36) 01/10/17 07:40 RDW 14.4 % (11.5-14.0) H 01/10/17 07:40 Plt Count 215 K/mm3 (150-450) 01/10/17 07:40 MPV 10.4 fl (6.0-9.5) H 01/10/17 07:40 Immature Gran % (Auto) 0.70 % (0.001-0.429) H 01/10/17 07:40 Immature Gran # (Auto) 0.05 K/mm3 (0.000-0.0310) H 01/10/17 07:40 Neutrophils % 76.8 % (42-75.0) H 01/10/17 07:40 Lymphocytes % 9.5 % (20-51) L 01/10/17 07:40 Monocytes % 10.7 % (0.0-9) H 01/10/17 07:40 Eosinophils % 1.9 % (0.0-3.0) 01/10/17 07:40 Basophils % 0.4 % (0.0-1.0) 01/10/17 07:40 Nucleated RBC % 0.0 k/mm3 (0-1) 01/10/17 07:40 Neutrophils # 5.6 K/mm3 (1.3-6.0) 01/10/17 07:40 Lymphocytes # 0.7 k/mm3 (1.5-3.5) L 01/10/17 07:40 Monocytes # 0.8 k/mm3 (0.0-1.0) 01/10/17 07:40 Eosinophils # 0.1 k/mm3 (0.0-0.7) 01/10/17 07:40 Absolute Basophils 0.0 k/mm3 (0.0-0.1) 01/10/17 07:40 Sodium 131 mmol/L (132-142) L 01/10/17 10:29 Plasma Sodium 133 mmol/L (130-142) 01/10/17 10:29 Potassium 4.0 mmol/L (3.4-4.6) 01/10/17 10:29 Chloride 95 mmol/L (97-106) L 01/10/17 10:29 Carbon Dioxide 25.4 mmol/L (24-32.6) 01/10/17 10:29 Anion Gap 14.6 mmol/L (6.8-13.8) H 01/10/17 10:29 BUN 38 mg/dL (3-23) H 01/10/17 10:29 Creatinine 1.63 mg/dL (0.4-1.4) H 01/10/17 10:29 Est GFR (Non-Af Amer) 32 mL/min (60-130) L D 01/10/17 10:29 BUN/Creatinine Ratio 23.3 (9.0-21.6) H 01/10/17 10:29 Random Glucose 212 mg/dL (70-110) H 01/10/17 10:29 Lactic Acid, Venous 1.1 mmol/L (0.4-1.9) 01/10/17 10:29 Calcium 8.8 mg/dL (7.9-10.9) 01/10/17 10:29 Calcium Adj for Albumin 9.5 mg/dL (8.4-10.2) 01/10/17 07:40 Total Bilirubin 1.3 mg/dL (0.0-1.1) H 01/10/17 07:40 AST 27 U/L (0-48) 01/10/17 07:40 ALT 23 U/L (19-67) 01/10/17 07:40 Alkaline Phosphatase 79 U/L (50-170) 01/10/17 07:40 Creatine Kinase 65 U/L (0-259) 01/10/17 11:20 CK-MB (CK-2) 0.9 ng/mL (0.0-9.0) 01/10/17 11:20 CK-MB (CK-2) Rel Index 1.4 (0.0-3.6) 01/10/17 11:20 Troponin I 0.042 ng/ml (0.00-0.10) 01/10/17 11:20 Total Protein 7.3 gm/dL (6.2-8.2) 01/10/17 07:40 Albumin 3.7 gm/dl (3.4-5.0) 01/10/17 07:40 Urine Color Yellow 01/10/17 08:26 Urine Appearance Clear 01/10/17 08:26 Urine pH 6.5 pH (5.0-7.0) 01/10/17 08:26 Ur Specific [place] 1.010 SP.GR. (1.005-1.010) 01/10/17 08:26 Urine Protein Negative mg/dL (NEGATIVE) 01/10/17 08:26 Urine Glucose (UA) 100 mg/dL (NEGATIVE) H 01/10/17 08:26 Urine Ketones Negative mg/dL (NEGATIVE) 01/10/17 08:26 Urine Blood 5 /ul (NEGATIVE) H 01/10/17 08:26 Urine Nitrate Negative (NEGATIVE) 01/10/17 08:26 Urine Bilirubin Negative mg/dl (NEGATIVE) 01/10/17 08:26 Urine Urobilinogen Normal EU/dl (NORMAL) 01/10/17 08:26 Ur Leukocyte Esterase 75 /ul (NEGATIVE) H 01/10/17 08:26 Urine RBC 0-5 /hpf (0-5) 01/10/17 08:26 Urine WBC 5-10 /hpf (0-5) H 01/10/17 08:26 Ur Epithelial Cells 0-5 /hpf (0-5) 01/10/17 08:26 Amorphous Sediment Moderate - 2+ (NONE-FEW) H 01/10/17 08:26 Urine Bacteria Trace (NONE) 01/10/17 08:26 Urine Culture Comments Culture to follow 01/10/17 08:26 Serum Ketones Negative (NEGATIVE) 01/10/17 07:30 Assessment/Plan - Narrative Narrative: Sulema is an 86 year old female who was admitted to the med-surg unit and had a witness seizure. Etiology is likely an undiagnosed seizure disorder as patient has been on levaquin which does lower the seizure threshold but must also consider the possibility of a CVA as well. Patient transferred emergently to [facility] by makayla. Report called to MICU resident physician by Dr. Alston. - Assessment/Plan (1) Seizure Problem: Acute (2) Altered mental status Problem: Acute (3) CAD (coronary artery disease) Problem: Chronic (4) Diabetes Problem: Chronic Qualifiers: Diabetes mellitus type: type 2 Diabetes mellitus complication status: with unspecified complications Diabetes mellitus [facility] insulin use: without terminal operator use Qualified Code(s): E11.8 - Type 2 diabetes mellitus with unspecified complications (5) GERD (gastroesophageal reflux disease) Problem: Chronic (6) HLD (hyperlipidemia) Problem: Chronic Qualifiers: Hyperlipidemia type: unspecified Qualified Code(s): E78.5 - Hyperlipidemia , unspecified (7) HTN (hypertension) Problem: Chronic Qualifiers: Hypertension type: essential hypertension Qualified Code(s): I10 - Essential (primary) hypertension (8) Type 2 diabetes mellitus Problem: Chronic
--- NOTE | 2017-01-10 13:29 | DS ---
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 Vital signs at the [facility] when found unresponsive: eyes fixed, BP 151/76, 96% on RA, blood sugar 251, temp 97.9, HR 77, RR 22. ER eval revealed unremarkable cbc. CMP remarkable for Na+ 128, BUN/Cr 44/1.94, glu 258, total bilirubin 1.3. lactic acid 3.3. patient had been started on an antibiotic 3 days prior for a UTI and a repeat UA in the ER showed the UTI to actually be improved. CT of the head was negative for any intracranial hemorrhage or mass effect. Chest xray was negative for any acute abnormalities. Patient was to be admitted for acute mental status changes for further work up. Upon admission to the floor, nursing staff indicated that patient started to have a seizure and a PAINTER APPRENTICE was called. Patient was given 2 mg IV ativan. EKG was done and showed a paced rhythm. Airway was protected by ERP with ET intubation. blood pressure initially started to quickly drop but responded to iv fluid intervention. norepinephrine drip was ordered as a precaution should the patient's blood pressure drop again but was not started. cardiac panel was negative for [place]. Dr. Alston arranged for transfer of the patient to [facility] for further medical care. Patient was transferred via airevac in critical condition. Procedures Performed: see notes below Procedures: Endotrachel intubation by Dr Adams - please see her procedure note for more details. - Results and Findings Results and Findings: Laboratory Results - last 24 hr 01/10/17 01/10/17 01/10/17 10:29 10:29 11:20 Sodium 131 L Plasma Sodium 133 Potassium 4.0 Chloride 95 L Carbon Dioxide 25.4 Anion Gap 14.6 H BUN 38 H Creatinine 1.63 H Est GFR (Non-Af Amer) 32 L D BUN/Creatinine Ratio 23.3 H Random Glucose 212 H Lactic Acid, Venous 1.1 Calcium 8.8 Creatine Kinase CK-MB (CK-2) CK-MB (CK-2) Rel Index Troponin I 0.045 01/10/17 11:20 Sodium Plasma Sodium Potassium Chloride Carbon Dioxide Anion Gap BUN Creatinine Est GFR (Non-Af Amer) BUN/Creatinine Ratio Random Glucose Lactic Acid, Venous Calcium Creatine Kinase 65 CK-MB (CK-2) 0.9 CK-MB (CK-2) Rel Index 1.4 Troponin I 0.042 - Medications Medications: Active Medications Levofloxacin/Dextrose (Levaquin) 500 mg in 100 mls @ 100 mls/hr IV Q24H GINGER PRN Reason: Protocol Stop: 02/09/17 08:46 Last Infusion: 01/10/17 10:27 Dose: Infused Discontinued Medications Sodium Chloride (Sodium Chloride 0.9%) 1,000 mls @ 999 mls/hr IV .Q1H1M ONE Stop: 01/10/17 09:07 Last Infusion: 01/10/17 10:28 Dose: Infused - Disposition Disposition: [facility] Condition: Critical Discharge Date: 01/10/17 Discharge Time: 12:10
== END 2017-01-10 12:10 | disposition short-term general hospital (02) | DRG 101 ==
LOC: ER 07:04 → MS 09:12
PROVIDERS: ADMIT Nurse Practitioner Critical Care Medicine; ATTEND Internal Medicine
PROC: 0BH17EZ Insertion of Endotracheal Airway into Trachea, Via Natural or Artificial Opening (ICD-10-PCS; principal; 2017-01-10)
PROC: 5A1935Z Respiratory Ventilation, Less than 24 Consecutive Hours (ICD-10-PCS; 2017-01-10)
DX: R56.9 Unspecified convulsions (principal); R40.4 Transient alteration of awareness; E11.9 Type 2 diabetes mellitus without complications; I10 Essential (primary) hypertension; E78.5 Hyperlipidemia, unspecified; I25.10 Atherosclerotic heart disease of native coronary artery without angina pectoris; Z95.5 Presence of coronary angioplasty implant and graft; Z95.1 Presence of aortocoronary bypass graft; Z95.0 Presence of cardiac pacemaker

== ENCOUNTER 2017-04-01 21:23 | Emergency (ER) | payer MEDICARE, BC ==
--- NOTE | 2017-04-01 21:38 | ERNOTE ---
<Miranda Al - Last Filed: 04/01/17 21:57> Medical Problem HPI - Narrative Date of Service: 04/01/17 - General Time Seen by Provider: 04/01/17 21:24 Source: patient Exam Limitations: no limitations - Immun/Allergies/Home Medications Immunizations: IMMUNIZATION HX Immunizations Up to Date No History of Influenza Vaccine No Hx Pneumococcal Vaccination No Allergies/Adverse Reactions: Allergies clarithromycin [From Biaxin] Allergy (Mild, Verified 04/01/17 21:34) diclofenac [Diclofenac] Allergy (Mild, Verified 04/01/17 21:34) diclofenac sodium [From Voltaren] Allergy (Mild, Verified 04/01/17 21:34) penicillin G Allergy (Mild, Verified 04/01/17 21:34) rabeprazole sodium [From Aciphex] Allergy (Mild, Verified 04/01/17 21:34) Hives Sulfa (Sulfonamide Antibiotics) [Sulfa(Sulfonamide Antibiotics)] Allergy (Mild, Verified 04/01/17 21:34) rash Home Medications: HOME MEDICATIONS Aspirin [Aspirin EC] 81 mg PO DAILY 06/11/12 [Last Taken 06/11/12 09:00] Levothyroxine Sodium 50 mcg PO DAILY 06/11/12 [Last Taken 06/11/12 09:00] Acetaminophen [Tylenol] 325 mg PO Q4H PRN 12/08/16 [Last Taken Unknown] Amlodipine Besylate [Norvasc] 25 mg PO BID 12/22/16 [Last Taken Unknown] B2/Vits A,C,E/Lut/Zeaxanth/Min [Icaps Tablet] 1 each PO DAILY 12/22/16 [Last Taken Unknown] Brimonidine Tartrate [Brimonidine 0.2% Ophthalmic Solution] 1 drop OP BID [Last Taken Unknown] Calcium Carbonate [Calcium Antacid] 1 tab PO TID PRN 12/22/16 [Last Taken Unknown] Carvedilol [Coreg] 25 mg PO BID 12/22/16 [Last Taken Unknown] Clopidogrel Bisulfate [Plavix] 75 mg PO DAILY 12/22/16 [Last Taken Unknown] Diphenhydramine HCl 25 mg PO Q4H PRN 12/22/16 [Last Taken Unknown] Insulin Aspart Prot/Insuln Asp [Novolog Mix 70/30] 25 units SQ BID 12/22/16 [ Last Taken Unknown] Latanoprost [Xalatan] 1 drop OP HS 12/22/16 [Last Taken Unknown] Nitroglycerin [Nitro-Dur] 0.4 mg TD PRN 12/22/16 [Last Taken Unknown] Pantoprazole Sodium [Protonix] 40 mg PO DAILY 12/22/16 [Last Taken Unknown] Pediatric Multivitamin No.49 [Flintstones Gummies] 2 each PO DAILY 12/22/16 [ Last Taken Unknown] Polyethylene Glycol 3350 [Miralax] 17 gm PO DAILY PRN 12/22/16 [Last Taken Unknown] Wheat Dextrin [Benefiber] 2 tbs PO DAILY 12/22/16 [Last Taken Unknown] Furosemide [Lasix] 40 mg PO 0700 tablet 12/27/16 [Last Taken Unknown] Spironolactone [Aldactone] 25 mg PO DAILY tablet 12/27/16 [Last Taken Unknown] Saliva Substitute Combo No.9 [Biotene Pbf] 473 ml MM PRN PRN 01/10/17 [Last Taken Unknown] Potassium Chloride [K-Dur] 20 meq PO DAILY 04/01/17 [Last Taken Unknown] - History of Present History Narrative: Pt. comes in with c/o hypoglycemia after she went to bed and her nurses came around to check on her found her to be minimally responsive. EMS was called and her blood glucose was found to be 40 so they gave her 50g of glucose and her blood glucose went up to 260 and pt. became normally responsive and Alert and oriented prior to arrival here. Pt. denies any symptoms at this time. Pt. denies any CP, NVD, fever, SOB, headache, dizziness, weakness, lightheadedness, aggravating factors, or associated factors at this time. Review of Systems - Review of Systems Constitutional: Present: no symptoms reported. Absent: recent illness, fever, chills, weakness, fatigue, malaise EYE: Present: no symptoms reported ENT: Present: no symptoms reported Respiratory: Present: no symptoms reported. Absent: shortness of breath, cough , wheezing Cardiology: Present: no symptoms reported. Absent: chest pain, palpitations, edema Gastrointestinal/Abdominal: Present: no symptoms reported Genitourinary: Present: no symptoms reported Musculoskeletal: Present: no symptoms reported. Absent: back pain, joint pain Skin: Present: no symptoms reported. Absent: rash, change in color Neurological: Present: no symptoms reported. Absent: headache, dizziness/light- headedness, numbness, tingling All Other Systems: All systems neg except as marked - Patient's Past Medical History Patient History - Medical: Diabetes Type 2, GERD, Glaucoma, Renal Disease Patient History - Cardiac/Respiratory: Coronary Heart Disease, Hypertension, Hyperlipidemia Patient History - Cancer: No Hx of Cancer Patient History - Surgical Procedures: Hysterectomy, Pacemaker, Total Hip Replacement, Other Patient History - Other: None - Family History Father Family History - Medical: Family History - Cardiac/Respiratory: No pertinent hx Family History - Cancer: Other - Social History Abuse History: No History of abuse Psych History: No pertinent hx - Immunizations Immunizations Up to Date: No Hx Pneumococcal Vaccination: No History of Influenza Vaccine: No Physical Exam - Physical Exam General Appearance: Present: wd/wn, alert, no apparent distress Head Exam: Present: normal inspection, no evidence of injury Eye Exam: Normal inspection: bilateral, PERRL: bilateral, EOMI: bilateral Ears, Nose, Throat: Present: normal ENT inspection, normal pharynx Neck: Present: normal inspection, nontender. Absent: lymphadenopathy (R), lymphadenopathy (L) Respiratory: Present: no respiratory distress, normal breath sounds, no accessory muscle use, chest nontender, lungs clear Cardiovascular/Chest: Present: regular rate, rhythm, no murmur, normal peripheral pulses Gastrointestinal/Abdominal: Present: normal bowel sounds, nontender, nondistended, soft, no organomegaly Back Exam: Present: normal inspection, normal range of motion, no CVA tenderness , no vertebral tenderness Extremity Exam: Present: normal inspection, non-tender, normal range of motion, no edema Neurological Exam: Present: alert, oriented, normal mood/affect, no motor/ sensory deficits - normal for pt.baseline mild generalized weakness, 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 Absent: motor weakness Skin Exam: Present: normal color, warm/dry. Absent: pallor, skin rash ED Progress - Results and Orders Patient's Lab Results:: I have reviewed the patient's lab results. - Vital Signs Patient's Vital Signs:: I have reviewed the patient's vital signs. - EKG EKG: other - a-paced no acute EKG read: Reviewed by me EKG Comments: interp by Dr Powell - Transfer of Care Physician Sign Out: Miranda Al Receiving Physician: Delmer Powell Pending Results: Labs, X-ray results Expected Disposition: Discharge Departure Clinical Impression: Hypoglycemia - Departure Disposition: Home self-care Condition: Fair Instructions: Hypoglycemia, [id number] Referrals: Cass De León DO [Primary Care Provider] - <Delmer Powell - Last Filed: 04/02/17 07:28> Medical Problem HPI - Immun/Allergies/Home Medications Immunizations: IMMUNIZATION HX Immunizations Up to Date No History of Influenza Vaccine No Hx Pneumococcal Vaccination No ED Progress - Results and Orders Patient's Lab Results:: I have reviewed the patient's lab results. Results and Orders: Laboratory Tests 04/01/17 04/01/17 04/01/17 21:50 21:50 22:00 WBC 7.3 Hgb 11.4 L Hct 32.2 L Plt Count 231 Sodium 138 Potassium 3.8 Chloride 100 Carbon Dioxide 31.1 Anion Gap 10.7 BUN 43 H Creatinine 1.60 H Random Glucose 110 Calcium 9.3 Total Bilirubin 0.5 AST 24 ALT 24 Alkaline Phosphatase 84 Total Protein 6.8 Albumin 3.6 Urine Color Yellow Urine Appearance Clear Urine pH 6.5 Ur Specific [place] <=1.005 Urine Protein Negative Urine Glucose (UA) Negative Urine Ketones Negative Urine Blood Negative Urine Nitrate Negative Urine Bilirubin Negative Urine Urobilinogen Normal Ur Leukocyte Esterase 25 H Urine RBC None seen Urine WBC 0-5 Ur Epithelial Cells None seen Urine Bacteria None seen Urine Culture Comments Culture to follow - Vital Signs Vital Signs: Vital Signs 04/01/17 04/01/17 04/01/17 21:26 21:50 22:11 Temperature 36.1 C L 35.8 C L Pulse Rate 75 65 60 Respiratory 17 25 H 16 Rate Blood Pressure 133/44 115/78 134/77 O2 Sat by Pulse 96 100 93 Oximetry 04/01/17 22:22 Temperature Pulse Rate 61 Respiratory 23 H Rate Blood Pressure 138/74 O2 Sat by Pulse Oximetry - Progress/Reassessment Progress:: Improved Progress Note-Subjective: 04/02/17 00:26 Pt blood sugar has stabilized with oral and IV treatment.
[2017-04-01 21:52] LABS: Hematocrit 32.2 % (37.0-47.0); Hemoglobin 11.4 gm/dL (12.5-16.0); Mean Cell Volume 94.2 fl (78-100); Mean Corpuscular Hemoglobin 33.3 pg (27-31); Mean Corpuscular Hgb Conc 35.4 g/dl (32-36); Mean Platelet Volume 10.3 fl (6.0-9.5); Neutrophil # 5.1 K/mm3 (1.3-6.0); Neutrophil % 70.7 % (42-75.0); Platelet Count 231 K/mm3 (150-450); Red Blood Count 3.42 M/mm3 (4.2-5.4); Red Cell Distribution Width 12.9 % (11.5-14.0); White Blood Count 7.3 K/mm3 (4.0-10.5)
[2017-04-01 22:05] LABS: Albumin * 3.6 gm/dl (3.4-5.0); Anion Gap 10.7 mmol/L (6.8-13.8); BUN/Creatinine Ratio 26.9 (9.0-21.6); Bilirubin, Total 0.5 mg/dL (0.0-1.1); Ca. Corrected For Albumin 9.3 mg/dL (8.4-10.2); Calcium * 9.3 mg/dL (7.9-10.9); Carbon Dioxide 31.1 mmol/L (24-32.6); Potassium 3.8 mmol/L (3.4-4.6); Total Protein 6.8 gm/dL (6.2-8.2)
[2017-04-01] MEDS ORDERED: DEXTROSE 50%-WATER 50 ML SYRG ONE (22:07)
[2017-04-01] MEDS ORDERED: DEXTROSE 50%-WATER 50 ML SYRG IV ONE (22:08)
[2017-04-01 22:09] LABS: Urine Bilirubin Negative (NEGATIVE); Urine Blood Negative /ul (NEGATIVE); Urine Ketone Negative (NEGATIVE); Urine Nitrite Negative (NEGATIVE); Urine Protein Negative (NEGATIVE); Urine Specific Gravity <=1.005 SP.GR. (1.005-1.010); Urine Urobilinogen Normal (NORMAL); Urine pH 6.5 pH (5.0-7.0)
[2017-04-01 22:20] LABS: Urine Appearance Clear; Urine Bacteria None Seen; Urine Color Yellow; Urine RBC None Seen /hpf (0-5); Urine WBC 0-5 /hpf (0-5)
[2017-04-02 03:13] VITALS: BP 116/30
== END 2017-04-02 01:00 | disposition home or self-care (01) ==
LOC: ER 21:23
DX: E16.2 Hypoglycemia, unspecified (principal); Z95.0 Presence of cardiac pacemaker

== ENCOUNTER 2017-04-24 11:09 | Observation (INO) | payer MEDICARE, BC ==
[2017-04-24] MEDS ORDERED: ACETAMINOPHEN 500 MG TABLET PO PRN (12:51)
[2017-04-24] MEDS ORDERED: MORPHINE SULFATE 2 MG/ML DISP.SYRIN IV PRN (12:51)
[2017-04-24] MEDS ORDERED: HYDROcodone/ACETAMINOPHEN 1 EACH TABLET PO PRN (12:51)
[2017-04-24] MEDS ORDERED: ONDANSETRON HCL/PF 2 MG/ML VIAL IV PRN (12:51)
[2017-04-24 13:29] LABS: Hematocrit 33.8 % (37.0-47.0); Hemoglobin 11.9 gm/dL (12.5-16.0); Mean Cell Volume 95.8 fl (78-100); Mean Corpuscular Hemoglobin 33.7 pg (27-31); Mean Corpuscular Hgb Conc 35.2 g/dl (32-36); Mean Platelet Volume 10.6 fl (6.0-9.5); Neutrophil # 6.4 K/mm3 (1.3-6.0); Neutrophil % 79.5 % (42-75.0); Platelet Count 281 K/mm3 (150-450); Red Blood Count 3.53 M/mm3 (4.2-5.4)
[2017-04-24 13:43] LABS: ALT 23 U/L (19-67); AST 20 U/L (0-48); Albumin * 3.5 gm/dl (3.4-5.0); Alkaline Phosphatase * 117 U/L (50-170); Anion Gap 10.9 mmol/L (6.8-13.8); BUN/Creatinine Ratio 21.4 (9.0-21.6); Bilirubin Direct 0.2 mg/dL (0.0-0.3); Bilirubin, Total 0.8 mg/dL (0.0-1.1); Bilirubin,Indirect 0.6 mg/dL (0.1-0.7); Blood Urea Nitrogen 44 mg/dL (3-23); Calcium * 9.4 mg/dL (7.9-10.9); Carbon Dioxide 30.7 mmol/L (24-32.6); Chloride 96 mmol/L (97-106); Glucose * 153 mg/dL (70-110); Potassium 4.6 mmol/L (3.4-4.6); Sodium 133 mmol/L (132-142); Total Protein 7.1 gm/dL (6.2-8.2)
[2017-04-24] MEDS: HEPARIN SODIUM,PORCINE 5,000 UNITS/ML VIAL SC SCH ×2 (15:30→21:19)
[2017-04-24] MEDS: LIDOCAINE 1 PATCH ADH..PATCH TP SCH (15:31)
[2017-04-24] MEDS: NORMAL SALINE 1,000 ML IV PRN (16:13)
[2017-04-24 16:24] LABS: Urine Bilirubin Negative (NEGATIVE); Urine Blood Negative /ul (NEGATIVE); Urine Ketone Negative (NEGATIVE); Urine Nitrite Negative (NEGATIVE); Urine Protein Negative (NEGATIVE); Urine Specific Gravity <=1.005 SP.GR. (1.005-1.010); Urine Urobilinogen Normal (NORMAL)
[2017-04-24 16:32] LABS: Urine Amorphous Sediment TRACE (NONE-FEW); Urine Appearance Clear; Urine Bacteria None Seen; Urine Color Yellow; Urine RBC None Seen /hpf (0-5); Urine WBC None Seen /hpf (0-5)
[2017-04-24] MEDS ORDERED: REMOVE PATCH 1 PATCH PATCH TP SCH (21:00)
[2017-04-24] MEDS ORDERED: SENNOSIDES/DOCUSATE SODIUM 1 TAB TABLET PO SCH (21:00)
[2017-04-25 08:18] VITALS: BP 133/88
[2017-04-25] MEDS: HEPARIN SODIUM,PORCINE 5,000 UNITS/ML VIAL SC SCH (09:00)
[2017-04-25] MEDS: NORMAL SALINE 1,000 ML IV PRN (09:10)
--- NOTE | 2017-04-25 10:00 | DS ---
(1) Acute right flank pain Problem: Acute (2) Non-traumatic compression fracture of T11 thoracic vertebra Problem: Acute Description of Stay: ADMISSION DATE: 04/24/2017 DISCHARGE DATE: 04/25/2017 ADMISSION HPI: The patient presented to my clinic on 04/25/2017 for follow-up after being seen in the [facility] ED on 04/24/2017 for severe back pain of unknown etiology. The patient denies any falls or injuries. The pain is mostly located in the mid to low back and more so on the right side. The patient denies any urinary symptoms. I was concerned about a possible hematoma but a stat ultrasound did not reveal any fluid collections. The patient will be admitted to the hospital for further evaluation and pain control. HOSPITAL COURSE: The patient was admitted to the hospital for further evaluation and pain control of her acute onset back pain/right flank pain. A CT revealed an acute compression fracture of T11 which fits with the etiology of her pain. The patients pain was adequately controlled with a lidocaine patch and as needed Gove, both of which she was discharged home with. We are unable to do an MRI of the thoracic spine for further evaluation of possible pathologic fracture due to the patients pacemaker. So instead we will complete an outpatient bone scan and I will have the patient follow-up with me in clinic to discuss results. The patient was discharged home in stable condition and will follow- up within 1 week. FOLLOW-UP APPOINTMENTS: -PCP, Dr. De León, within 1 week NEW OR CHANGED MEDICATIONS: -Hydrocodone-APAP 5-325mg 1 tab Q4H PRN severe pain -Lidocaine 5% patch daily (12H on and 12H off) DISCONTINUED MEDICATIONS: None RADIOLOGY REPORTS: Retroperitoneal ultrasound on 04/24/2017 showed: No evidence for obstructive uropathy or suspicious renal mass. Layering debris within the urinary bladder which could be due to either blood or pus. Correlate clinically. CT of abdomen and pelvis without contrast on 04/24/2017 showed: No evidence of renal stones or obstructive uropathy. Nonspecific bilateral perinephric stranding, it could be due to underlying renal parenchymal disease or potential pyelonephritis. Critical correlation is advised. There is no evidence for retroperitoneal or intra-abdominal hemorrhage/hematoma. Potential mild acute compression fracture of T11 vertebral body suggested. Correlate clinically for insufficiency versus pathologic fracture. Soft tissue density subcutaneous findings and the anterior abdominal wall. Procedures Performed: none Discharge Disposition: [place] self care Disposition: [place] self-care Condition: Stable Discharge Activity: Activity as tolerated Discharge Diet: Resume usual diet Referrals: Cass De León DO [Primary Care Provider] - Problem Oriented Discharge Instructions to Patient/Family: Back Pain, Adult, Spinal Compression Fracture Additional Patient Instructions (free text): -Mobile Nursing [facility] at discharge -[facility] to draw BMP on 04/28/2017 and send results to Dr. De León's office -Follow-up with PCP, Dr. De León, on Thursday or next week (04/29 or ) -Schedule outpatient MRI for Thursday or Thursday next week (04/27 or 04/28) Prescriptions (Any new or edited meds): HYDROcodone/ACETAMINOPHEN [[place] 5-325] 1 each PO Q4H PRN #50 tablet PRN Reason: Severe Pain Lidocaine [Lidoderm 5%] 1 patch TP DAILY #10 adh..patch Complete Home Medications List: Complete Home Medication List: Aspirin [Aspirin EC] 81 mg PO DAILY 06/11/12 Levothyroxine Sodium 50 mcg PO DAILY 06/11/12 Acetaminophen [Tylenol] 325 mg PO Q4H PRN 12/08/16 Amlodipine Besylate [Norvasc] 2.5 mg PO BID 12/22/16 B2/Vits A,C,E/Lut/Zeaxanth/Min [Icaps Tablet] 1 each PO DAILY 12/22/16 Brimonidine Tartrate [Brimonidine 0.2% Ophthalmic Solution] 1 drop OP BID Calcium Carbonate [Calcium Antacid] 1 tab PO TID PRN 12/22/16 Carvedilol [Coreg] 25 mg PO BID 12/22/16 Clopidogrel Bisulfate [Plavix] 75 mg PO DAILY 12/22/16 Diphenhydramine HCl 25 mg PO Q4H PRN 12/22/16 Insulin Aspart Prot/Insuln Asp [Novolog Mix 70/30] 25 units SQ BID 12/22/16 Latanoprost [Xalatan] 1 drop OP HS 12/22/16 Nitroglycerin [Nitro-Dur] 0.4 mg TD DAILY PRN 12/22/16 Pantoprazole Sodium [Protonix] 40 mg PO DAILY 12/22/16 Pediatric Multivitamin No.49 [Flintstones Gummies] 2 each PO DAILY 12/22/16 Polyethylene Glycol 3350 [Miralax] 17 gm PO DAILY PRN 12/22/16 Wheat Dextrin [Benefiber] 2 tbs PO DAILY 12/22/16 Spironolactone [Aldactone] 25 mg PO DAILY tablet 12/27/16 Saliva Substitute Combo No.9 [Biotene Pbf] 473 ml MM PRN PRN 01/10/17 Potassium Chloride [K-Dur] 20 meq PO DAILY 04/01/17 traMADol HCL [Ultram] 50 mg PO Q6H PRN #10 tablet 04/23/17 Atorvastatin Calcium [Lipitor] 40 mg PO HS 04/24/17 Ergocalciferol (Vitamin D2) [Vitamin D2] 50,000 unit PO RIVERA 04/24/17 Furosemide [Lasix] 40 mg PO BID 04/24/17 Memantine HCl 10 mg PO BID 04/24/17 levETIRAcetam [Levetiracetam] 500 mg PO BID 04/24/17 HYDROcodone/ACETAMINOPHEN [[place] 5-325] 1 each PO Q4H PRN #50 tablet 04/25/17 Lidocaine [Lidoderm 5%] 1 patch TP DAILY #10 adh..patch 04/25/17 Amb Orders for Discharge: Basic Metabolic Panel Time Frame: 04/28/17, Facility: [facility], Location: Home Health Care MRI Thoracic W/ WO Location: Determined By Patient
[2017-04-25] MEDS: LIDOCAINE 1 PATCH ADH..PATCH TP SCH (10:18)
--- NOTE | 2017-04-27 08:45 | HP ---
Chief Complaint - Chief Complaint Date of Service: 04/24/17 Time of Service: 14:00 Chief Complaint: Severe back pain History of Present Illness: The patient presented to my clinic on 04/25/2017 for follow-up after being seen in the [facility] ED on 04/24/2017 for severe back pain of unknown etiology. The patient denies any falls or injuries. The pain is mostly located in the mid to low back and more so on the right side. The patient denies any urinary symptoms. I was concerned about a possible hematoma but a stat ultrasound did not reveal any fluid collections. The patient will be admitted to the hospital for further evaluation and pain control. - Patient's Past Medical History Patient History - Medical: Diabetes Type 2, GERD, Glaucoma, Renal Disease, Seizures Patient History - Cardiac/Respiratory: Coronary Heart Disease, Hypertension, Hyperlipidemia, TIA, Sleep Apnea Patient History - Cancer: No Hx of Cancer Patient History - Surgical Procedures: Appendectomy, Cataracts, Coronary Bypass Surgery, Hysterectomy, Pacemaker, Total Hip Replacement, Other Patient History - Other: None - Family History Father Family History - Medical: Family History - Cardiac/Respiratory: No pertinent hx Family History - Cancer: Colon Mother Family History - Medical: , No pertinent hx Family History - Cardiac/Respiratory: No pertinent hx Family History - Cancer: No pertinent family hx - Social History Living Situations: assisted living Abuse History: No History of abuse Psych History: No pertinent hx Smoking Status: Never smoker Have you smoked in the past 12 months: No Alcohol Use: none Drug Use: none - Immunizations Immunizations Up to Date: No Hx Pneumococcal Vaccination: No History of Influenza Vaccine: No Review Of Systems (GEN) - Review of Systems Generalized/Overall Review: Present: Weakness, Fatigue EENTM: Present: No Symptoms Reported Respiratory: Present: No Symptoms Reported Cardiac: Present: No Symptoms Reported Abdominal: Present: No Symptoms Reported Genitourinary: Present: No Symptoms Reported Musculoskeletal: Present: Back Pain Neurological: Present: No Symptoms Reported Skin: Present: No Symptoms Reported Endocrine: Present: No Symptoms Reported Misc: All systems neg except as marked Immunizations: IMMUNIZATION HX Immunizations Up to Date No History of Influenza Vaccine No Hx Pneumococcal Vaccination No Allergies/Adverse Reactions: Allergies Allergy/AdvReac Type Severity Reaction Status Date / Time clarithromycin [From Biaxin] Allergy Mild Verified 04/24/17 16:35 diclofenac [Diclofenac] Allergy Mild Verified 04/24/17 16:35 diclofenac sodium Allergy Mild Verified 04/24/17 16:35 [From Voltaren] penicillin G Allergy Mild Verified 04/24/17 16:35 rabeprazole sodium Allergy Mild Hives Verified 04/24/17 16:35 [From Aciphex] Sulfa (Sulfonamide Allergy Mild rash Verified 04/24/17 16:35 Antibiotics) [Sulfa(Sulfonamide Antibiotics)] Home Medications: HOME MEDICATIONS Aspirin [Aspirin EC] 81 mg PO DAILY 06/11/12 [Last Taken 06/11/12 09:00] Levothyroxine Sodium 50 mcg PO DAILY 06/11/12 [Last Taken 06/11/12 09:00] Acetaminophen [Tylenol] 325 mg PO Q4H PRN 12/08/16 [Last Taken Unknown] Amlodipine Besylate [Norvasc] 2.5 mg PO BID 12/22/16 [Last Taken Unknown] B2/Vits A,C,E/Lut/Zeaxanth/Min [Icaps Tablet] 1 each PO DAILY 12/22/16 [Last Taken Unknown] Brimonidine Tartrate [Brimonidine 0.2% Ophthalmic Solution] 1 drop OP BID [Last Taken Unknown] Calcium Carbonate [Calcium Antacid] 1 tab PO TID PRN 12/22/16 [Last Taken Unknown] Carvedilol [Coreg] 25 mg PO BID 12/22/16 [Last Taken Unknown] Clopidogrel Bisulfate [Plavix] 75 mg PO DAILY 12/22/16 [Last Taken Unknown] Diphenhydramine HCl 25 mg PO Q4H PRN 12/22/16 [Last Taken Unknown] Insulin Aspart Prot/Insuln Asp [Novolog Mix 70/30] 25 units SQ BID 12/22/16 [ Last Taken Unknown] Latanoprost [Xalatan] 1 drop OP HS 12/22/16 [Last Taken Unknown] Nitroglycerin [Nitro-Dur] 0.4 mg TD DAILY PRN 12/22/16 [Last Taken Unknown] Pantoprazole Sodium [Protonix] 40 mg PO DAILY 12/22/16 [Last Taken Unknown] Pediatric Multivitamin No.49 [Flintstones Gummies] 2 each PO DAILY 12/22/16 [ Last Taken Unknown] Polyethylene Glycol 3350 [Miralax] 17 gm PO DAILY PRN 12/22/16 [Last Taken Unknown] Wheat Dextrin [Benefiber] 2 tbs PO DAILY 12/22/16 [Last Taken Unknown] Spironolactone [Aldactone] 25 mg PO DAILY tablet 12/27/16 [Last Taken Unknown] Saliva Substitute Combo No.9 [Biotene Pbf] 473 ml MM PRN PRN 01/10/17 [Last Taken Unknown] Potassium Chloride [K-Dur] 20 meq PO DAILY 04/01/17 [Last Taken Unknown] traMADol HCL [Ultram] 50 mg PO Q6H PRN #10 tablet 04/23/17 [Last Taken Unknown] Atorvastatin Calcium [Lipitor] 40 mg PO HS 04/24/17 [Last Taken Unknown] Ergocalciferol (Vitamin D2) [Vitamin D2] 50,000 unit PO RIVERA 04/24/17 [Last Taken Unknown] Furosemide [Lasix] 40 mg PO BID 04/24/17 [Last Taken Unknown] Memantine HCl 10 mg PO BID 04/24/17 [Last Taken Unknown] levETIRAcetam [Levetiracetam] 500 mg PO BID 04/24/17 [Last Taken Unknown] HYDROcodone/ACETAMINOPHEN [[place] 5-325] 1 each PO Q4H PRN #50 tablet 04/25/17 [ Last Taken Unknown] Lidocaine [Lidoderm 5%] 1 patch TP DAILY #10 adh..patch 04/25/17 [Last Taken Unknown] Exam - Exam Vital Signs: Vital Signs - Last Taken Temp 36.7 C 04/25/17 08:17 Pulse 61 04/25/17 08:17 Resp 18 04/25/17 08:17 BP 133/88 04/25/17 08:17 Pulse Ox 96 04/25/17 08:17 Constitutional: Present: Alert, Oriented x3, Cooperative, Acute distress, Elderly ENT Exam: Present: moist mucous membranes Eye Exam: bilateral eye: normal inspection Respiratory: Present: lungs clear, normal breath sounds, no respiratory distress , no accessory muscle use Cardiovascular/Chest: Present: regular rate, rhythm Abdomen: Present: soft, nontender, nondistended, no rebound tenderness, CVA tenderness Extremity: Present: other - Midline bony spinal tenderness and paraspinal muscle TTP over lower thoracic and upper lumbar spine Skin Exam: Present: warm/dry Neurologic: Present: alert, oriented x 3 Appearance: Present: appropriate appearance, appropriate insight, neat Eye contact: Present: cooperative, good eye contact, normal speech Thoughts: Present: normal thought pattern, no apparent hallucination Diagnostic Studies: Microbiology 04/24/17 16:05 Urine Culture - Final Urine,Clean Catch Morganella Morganii Laboratory Results WBC 8.0 K/mm3 (4.0-10.5) 04/24/17 12:57 RBC 3.53 M/mm3 (4.2-5.4) L 04/24/17 12:57 Hgb 11.9 gm/dL (12.5-16.0) L 04/24/17 12:57 Hct 33.8 % (37.0-47.0) L 04/24/17 12:57 MCV 95.8 fl (78-100) 04/24/17 12:57 MCH 33.7 pg (27-31) H 04/24/17 12:57 MCHC 35.2 g/dl (32-36) 04/24/17 12:57 RDW 12.0 % (11.5-14.0) 04/24/17 12:57 Plt Count 281 K/mm3 (150-450) 04/24/17 12:57 MPV 10.6 fl (6.0-9.5) H 04/24/17 12:57 Immature Gran % (Auto) 0.30 % (0.001-0.429) 04/24/17 12:57 Immature Gran # (Auto) 0.02 K/mm3 (0.000-0.0310) 04/24/17 12:57 Neutrophils % 79.5 % (42-75.0) H 04/24/17 12:57 Lymphocytes % 10.3 % (20-51) L 04/24/17 12:57 Monocytes % 8.4 % (0.0-9) 04/24/17 12:57 Eosinophils % 1.1 % (0.0-3.0) 04/24/17 12:57 Basophils % 0.4 % (0.0-1.0) 04/24/17 12:57 Nucleated RBC % 0.0 k/mm3 (0-1) 04/24/17 12:57 Neutrophils # 6.4 K/mm3 (1.3-6.0) H 04/24/17 12:57 Lymphocytes # 0.8 k/mm3 (1.5-3.5) L 04/24/17 12:57 Monocytes # 0.7 k/mm3 (0.0-1.0) 04/24/17 12:57 Eosinophils # 0.1 k/mm3 (0.0-0.7) 04/24/17 12:57 Absolute Basophils 0.0 k/mm3 (0.0-0.1) 04/24/17 12:57 Sodium 133 mmol/L (132-142) 04/24/17 12:57 Plasma Sodium 134 mmol/L (130-142) 04/24/17 12:57 Potassium 4.6 mmol/L (3.4-4.6) 04/24/17 12:57 Chloride 96 mmol/L (97-106) L 04/24/17 12:57 Carbon Dioxide 30.7 mmol/L (24-32.6) 04/24/17 12:57 Anion Gap 10.9 mmol/L (6.8-13.8) 04/24/17 12:57 BUN 44 mg/dL (3-23) H 04/24/17 12:57 Creatinine 2.06 mg/dL (0.4-1.4) H 04/24/17 12:57 Est GFR (Non-Af Amer) 24 mL/min (60-130) L 04/24/17 12:57 BUN/Creatinine Ratio 21.4 (9.0-21.6) 04/24/17 12:57 Random Glucose 153 mg/dL (70-110) H D 04/24/17 12:57 Calcium 9.4 mg/dL (7.9-10.9) 04/24/17 12:57 Total Bilirubin 0.8 mg/dL (0.0-1.1) 04/24/17 12:57 Direct Bilirubin 0.2 mg/dL (0.0-0.3) 04/24/17 12:57 Indirect Bilirubin 0.6 mg/dL (0.1-0.7) 04/24/17 12:57 AST 20 U/L (0-48) 04/24/17 12:57 ALT 23 U/L (19-67) 04/24/17 12:57 Alkaline Phosphatase 117 U/L (50-170) 04/24/17 12:57 Total Protein 7.1 gm/dL (6.2-8.2) 04/24/17 12:57 Albumin 3.5 gm/dl (3.4-5.0) 04/24/17 12:57 Urine Color Yellow 04/24/17 16:05 Urine Appearance Clear 04/24/17 16:05 Urine pH 6.0 pH (5.0-7.0) 04/24/17 16:05 Ur Specific [place] <=1.005 SP.GR. (1.005-1.010) 04/24/17 16:05 Urine Protein Negative mg/dL (NEGATIVE) 04/24/17 16:05 Urine Glucose (UA) Negative mg/dL (NEGATIVE) 04/24/17 16:05 Urine Ketones Negative mg/dL (NEGATIVE) 04/24/17 16:05 Urine Blood Negative /ul (NEGATIVE) 04/24/17 16:05 Urine Nitrate Negative (NEGATIVE) 04/24/17 16:05 Urine Bilirubin Negative mg/dl (NEGATIVE) 04/24/17 16:05 Urine Urobilinogen Normal EU/dl (NORMAL) 04/24/17 16:05 Ur Leukocyte Esterase 25 /ul (NEGATIVE) H 04/24/17 16:05 Urine RBC None seen /hpf (0-5) 04/24/17 16:05 Urine WBC None seen /hpf (0-5) 04/24/17 16:05 Ur Epithelial Cells None seen /hpf (0-5) 04/24/17 16:05 Amorphous Sediment Trace (NONE-FEW) 04/24/17 16:05 Urine Bacteria None seen (NONE) 04/24/17 16:05 Urine Culture Comments Culture to follow 04/24/17 16:05 Assessment/Plan - Narrative Narrative: Admit patient to observation. Pain control with lidocaine patch and [place] PRN. Possible etiologies for the patient's acute pain include kidney stone, vertebral fracture/compression fracture, pyelonephritis. CT abdomen and pelvis without contrast ordered for further evaluation. Further recommendations pending CT results. - Assessment/Plan (1) Acute right flank pain Problem: Acute (2) Acute back pain Problem: Acute
== END 2017-04-25 11:30 | disposition home health service (06) ==
LOC: RAD 11:09 → MS 12:47
PROVIDERS: ADMIT Internal Medicine; ATTEND Internal Medicine
DX: R10.9 Unspecified abdominal pain (principal); M48.54XA Collapsed vertebra, not elsewhere classified, thoracic region, initial encounter for fracture; E11.9 Type 2 diabetes mellitus without complications; I10 Essential (primary) hypertension; K21.9 Gastro-esophageal reflux disease without esophagitis; E78.5 Hyperlipidemia, unspecified
CPT/HCPCS: 36415; 74176; 76770; 80048; 80076; 81001; 85025; 87077; 87081; 87086; 87186; 96372; 97162; G0378; G0379; G8981; G8982; G8983

== ENCOUNTER 2017-06-10 18:34 | Emergency (ER) | payer MEDICARE, BC ==
--- NOTE | 2017-06-10 19:12 | ERNOTE ---
Medical Problem HPI - General Chief Complaint: General Assessment Time Seen by Provider: 06/10/17 18:54 Source: patient, family - Immun/Allergies/Home Medications Immunizations: IMMUNIZATION HX Immunizations Up to Date Yes History of Influenza Vaccine Yes Hx Pneumococcal Vaccination Yes Allergies/Adverse Reactions: Allergies clarithromycin [From Biaxin] Allergy (Mild, Verified 05/05/17 19:47) diclofenac [Diclofenac] Allergy (Mild, Verified 05/05/17 19:47) diclofenac sodium [From Voltaren] Allergy (Mild, Verified 05/05/17 19:47) penicillin G Allergy (Mild, Verified 05/05/17 19:47) rabeprazole sodium [From Aciphex] Allergy (Mild, Verified 05/05/17 19:47) Hives Sulfa (Sulfonamide Antibiotics) [Sulfa(Sulfonamide Antibiotics)] Allergy (Mild, Verified 05/05/17 19:47) rash Home Medications: HOME MEDICATIONS Aspirin [Aspirin EC] 81 mg PO DAILY 06/11/12 [Last Taken 06/11/12 09:00] Levothyroxine Sodium 50 mcg PO DAILY 06/11/12 [Last Taken 06/11/12 09:00] Acetaminophen [Tylenol] 325 mg PO Q4H PRN 12/08/16 [Last Taken Unknown] Amlodipine Besylate [Norvasc] 2.5 mg PO BID 12/22/16 [Last Taken Unknown] B2/Vits A,C,E/Lut/Zeaxanth/Min [Icaps Tablet] 1 each PO DAILY 12/22/16 [Last Taken Unknown] Brimonidine Tartrate [Brimonidine 0.2% Ophthalmic Solution] 1 drop OP BID [Last Taken Unknown] Calcium Carbonate [Calcium Antacid] 1 tab PO TID PRN 12/22/16 [Last Taken Unknown] Carvedilol [Coreg] 25 mg PO BID 12/22/16 [Last Taken Unknown] Clopidogrel Bisulfate [Plavix] 75 mg PO DAILY 12/22/16 [Last Taken Unknown] Diphenhydramine HCl 25 mg PO Q4H PRN 12/22/16 [Last Taken Unknown] Latanoprost [Xalatan] 1 drop OP HS 12/22/16 [Last Taken Unknown] Nitroglycerin [Nitro-Dur] 0.4 mg TD DAILY PRN 12/22/16 [Last Taken Unknown] Pantoprazole Sodium [Protonix] 40 mg PO DAILY 12/22/16 [Last Taken Unknown] Pediatric Multivitamin No.49 [Flintstones Gummies] 2 each PO DAILY 12/22/16 [ Last Taken Unknown] Polyethylene Glycol 3350 [Miralax] 17 gm PO DAILY PRN 12/22/16 [Last Taken Unknown] Wheat Dextrin [Benefiber] 2 tbs PO DAILY 12/22/16 [Last Taken Unknown] Spironolactone [Aldactone] 25 mg PO DAILY tablet 12/27/16 [Last Taken Unknown] Saliva Substitute Combo No.9 [Biotene Pbf] 473 ml MM PRN PRN 01/10/17 [Last Taken Unknown] Potassium Chloride [K-Dur] 20 meq PO DAILY 04/01/17 [Last Taken Unknown] traMADol HCL [Ultram] 50 mg PO Q6H PRN #10 tablet 04/23/17 [Last Taken Unknown] Atorvastatin Calcium [Lipitor] 40 mg PO HS 04/24/17 [Last Taken Unknown] Ergocalciferol (Vitamin D2) [Vitamin D2] 1.25 mg PO RIVERA 04/24/17 [Last Taken Unknown] Furosemide [Lasix] 40 mg PO BID 04/24/17 [Last Taken Unknown] Memantine HCl 10 mg PO BID 04/24/17 [Last Taken Unknown] levETIRAcetam [Levetiracetam] 500 mg PO BID 04/24/17 [Last Taken Unknown] HYDROcodone/ACETAMINOPHEN [[place] 5-325] 1 each PO Q4H PRN #50 tablet 04/25/17 [ Last Taken Unknown] Lidocaine [Lidoderm 5%] 1 patch TP DAILY #10 adh..patch 04/25/17 [Last Taken Unknown] Insulin NPH Hum/Reg Insulin Hm [Humulin 70/30 Kwikpen] 25 unit SQ BID 05/05/17 [ Last Taken Unknown] - History of Present History Narrative: Patient is a 86-year-old patient female who was brought into the emergency room she was found to have blood sugar in the 30s. She is an insulin-dependent diabetic currently on NPH twice a day. She couldn't remember whether she ate breakfast this morning. She is here with her daughter who provided some history patient currently lives at a [facility]. Her daughter reports that she has been confused and her confusion is reminiscent of a urinary tract infection. She denies any falls, chest pain, diarrhea, abdominal pain, nausea, vomiting, area, he denies symptoms, Review of Systems - Review of Systems Constitutional: Present: See HPI EYE: Present: see HPI ENT: Present: See HPI Respiratory: Present: See HPI Cardiology: Present: See HPI Gastrointestinal/Abdominal: Present: See HPI Genitourinary: Present: See HPI Musculoskeletal: Present: See HPI Neurological: Present: See HPI Endocrine: Present: intolerance to cold Hematologic/Lymphatic: Present: See HPI Psych: Present: See HPI - Patient's Past Medical History Patient History - Medical: Diabetes Type 2, GERD, Glaucoma, Renal Disease, Seizures Patient History - Cardiac/Respiratory: Coronary Heart Disease, Hypertension, Hyperlipidemia, TIA, Sleep Apnea Patient History - Cancer: No Hx of Cancer Patient History - Surgical Procedures: Appendectomy, Cataracts, Coronary Bypass Surgery, Hysterectomy, Pacemaker, Total Hip Replacement, Other Patient History - Other: None - Family History Father Family History - Medical: Family History - Cardiac/Respiratory: No pertinent hx Family History - Cancer: Colon Mother Family History - Medical: , No pertinent hx Family History - Cardiac/Respiratory: No pertinent hx Family History - Cancer: No pertinent family hx - Social History Living Situations: care home Abuse History: No History of abuse Psych History: No pertinent hx Smoking Status: Never smoker Patient requests Smoking Cessation Consult: No Initiate information on Smoking Cessation: No Alcohol Use: none Drug Use: none - Immunizations Immunizations Up to Date: Yes Hx Pneumococcal Vaccination: Yes History of Influenza Vaccine: Yes Physical Exam - Physical Exam General Appearance: Present: wd/wn, alert, no apparent distress Head Exam: Present: normal inspection, no evidence of injury Eye Exam: Normal inspection: bilateral, PERRL: bilateral, EOMI: bilateral Respiratory: Present: no respiratory distress, normal breath sounds, no accessory muscle use Cardiovascular/Chest: Present: regular rate, rhythm, no murmur, normal peripheral pulses Gastrointestinal/Abdominal: Present: normal bowel sounds, nontender, nondistended Extremity Exam: Present: normal inspection, non-tender, normal range of motion, extremity edema Neurological Exam: Present: alert, normal mood/affect, supervisor composing room II-XII nml as tested , disoriented to person, disoriented to place Skin Exam: Present: normal color, warm/dry Lymphatic Exam: Present: no adenopathy ED Progress - Results and Orders Patient's Lab Results:: I have reviewed the patient's lab results. - Vital Signs Patient's Vital Signs:: I have reviewed the patient's vital signs. Vital Signs: Vital Signs 06/10/17 18:36 Temperature 36 C L Pulse Rate 60 Respiratory 18 Rate Blood Pressure 141/102 O2 Sat by Pulse 97 Oximetry - Progress/Reassessment Chief Complaint: General Assessment Progress Note-Subjective: 06/10/17 20:32 Patient is seen and evaluated at emergency room after presenting to the emergency room with hypoglycemia Vital signs were reviewed and found to be unremarkable. Examination was consistent with an elderly lady who is alert and oriented place and person but not to time. Blood work done was significant for creatinine of 1.5. CT scan of the head done was consistent with atrophy and chronic microvascular changes of the white matter otherwise negative Given her frequent history of hypoglycemia I think to be appropriate to proceed and decrease her NPH from 25 units to 20 units twice a day. Have a follow-up with her primary care physician in 7-10 days Departure Clinical Impression: Hypoglycemia - Departure Disposition: Home self-care Condition: Stable Instructions: Hypoglycemia, [id number] Print Language: Kyrgyz Additional Instructions: See my progress note. Decrease her NPH from 25 units twice a day to 20 units twice a day
[2017-06-10 19:20] LABS: Hematocrit 38.3 % (37.0-47.0); Hemoglobin 13.1 gm/dL (12.5-16.0); Mean Corpuscular Hemoglobin 32.8 pg (27-31); Mean Corpuscular Hgb Conc 34.2 g/dl (32-36); Mean Platelet Volume 10.4 fl (6.0-9.5); Neutrophil # 7.9 K/mm3 (1.3-6.0); Neutrophil % 79.7 % (42-75.0); Platelet Count 209 K/mm3 (150-450); Red Blood Count 3.99 M/mm3 (4.2-5.4); Red Cell Distribution Width 12.8 % (11.5-14.0); White Blood Count 9.9 K/mm3 (4.0-10.5)
[2017-06-10 19:28] LABS: Urine Bilirubin Negative (NEGATIVE); Urine Blood Negative /ul (NEGATIVE); Urine Color Yellow; Urine Ketone Negative (NEGATIVE); Urine Nitrite Negative (NEGATIVE); Urine Protein Negative (NEGATIVE); Urine Urobilinogen Normal (NORMAL)
[2017-06-10 19:31] LABS: Urine Amorphous Sediment Few - 1+ (NONE-FEW); Urine Appearance Clear; Urine Bacteria TRACE; Urine RBC None Seen /hpf (0-5); Urine WBC 0-5 /hpf (0-5)
[2017-06-10 19:34] LABS: Albumin * 3.7 gm/dl (3.4-5.0); Anion Gap 9.1 mmol/L (6.8-13.8); BUN/Creatinine Ratio 18.4 (9.0-21.6); Bilirubin, Total 0.6 mg/dL (0.0-1.1); Ca. Corrected For Albumin 7.9 mg/dL (8.4-10.2); Carbon Dioxide 30.8 mmol/L (24-32.6); Potassium 3.9 mmol/L (3.4-4.6); Total Protein 7.1 gm/dL (6.2-8.2)
[2017-06-10 21:05] VITALS: BP 137/50
== END 2017-06-10 20:52 | disposition home or self-care (01) ==
LOC: ER 18:34
DX: E16.2 Hypoglycemia, unspecified (principal); E11.9 Type 2 diabetes mellitus without complications; Z79.4 Long term (current) use of insulin; K21.9 Gastro-esophageal reflux disease without esophagitis; I10 Essential (primary) hypertension; I50.9 Heart failure, unspecified; H40.9 Unspecified glaucoma; Z86.73 Personal history of transient ischemic attack (TIA), and cerebral infarction without residual deficits; E78.5 Hyperlipidemia, unspecified